=== PATIENT | female | born 1985 | race Caucasian/White ===

== ENCOUNTER 2018-12-01 10:58 | Outpatient (CLI) | payer BC, SELFPAY ==
[2018-12-01 12:02] LABS: TSH (W/Ref FT4) 0.68 uIU/mL (0.358-3.74)
== END 2018-12-01 11:18 ==
PROVIDERS: PCP Nurse Practitioner Family; Visit Provider Nurse Practitioner Women's Health
DX: N93.9 Abnormal uterine and vaginal bleeding, unspecified (principal)
CPT/HCPCS: 36415; 84443

== ENCOUNTER 2021-05-05 12:43 | Outpatient (REF) | payer OTHER, SELFPAY ==
--- NOTE | 2021-05-05 10:45 | PAPFT_PTH ---
PATIENT: rAuna Gray LOC: [facility] U#:[id number] AGE/SX: 35/F ROOM: RE05/05/[address]: STACIE Brito : 1985 BED: DIS: 05/05/2021 SPEC #: [id number] RECD: 05/05/21 12:54 STATUS: SONAL REQ #: [id number] JOHNNIE: 05/05/21 10:[address]: Deepika Santos DEPT: [facility] Cytology RECD BY: Anitha Valenzuela ENTERED: 05/05/21 12:55 SP TYPE: PAPFT OTHR DR: Mely Albarran Tissues: 1 - CX/ENDOCX FOR PAP SMEARS Procedures: PAP THIN PREP/UVM Screening HPV DNA PROBE Comments: [id number]
== END 2021-05-05 12:44 | disposition home or self-care (01) ==
LOC: LBN 12:43
PROVIDERS: PCP Nurse Practitioner Family; Referring Provider Nurse Practitioner Family; Visit Provider Nurse Practitioner Family
DX: Z12.4 Encounter for screening for malignant neoplasm of cervix (principal); Z11.51 Encounter for screening for human papillomavirus (HPV)
CPT/HCPCS: 88142; 87624

== ENCOUNTER 2021-05-14 00:36 | Outpatient (CLI) | payer OTHER, SELFPAY ==
--- NOTE | 2021-05-14 14:30 | DI.MAMMO_ITS ---
Exam(s) MAMMO SCREENING EXAM: MAMMO SCREENING CLINICAL HISTORY: screening. TECHNIQUE: Bilateral full field digital CC and MLO mammographic images were obtained with 3D tomosyn thesis and utilizing computer aided detection (CAD). COMPARISON: None. This is a baseline screening mammogram on this 35-year-old patient. Her mother w as diagnosed with breast cancer at age 50. FINDINGS: The fibroglandular tissue is very dense, this decreasing the sensitivity of the mammogram for finding hidden underlying lesions. There are multiple nodular densities evident bilaterally. No malignant-appearing microcalcification groups. There is no significant architectural distortion nor skin thickening-retraction. IMPRESSION: Very dense bilateral fibroglandular tissue. Suggestion of bilateral nodules. Bilateral complete breast ultrasound recommended. Significant family history BI-RADS Category 0 - Assessment Incomplete: Need additional imaging evaluation Breast Density - Category D - Extremely dense Breast density Category C or D implies that the patient has dense breast tissue. Dense breast tissue can make it harder to find cancer on a mammogram. Dense breast tissue is also associated with an incr eased risk of breast cancer. This information about the result of the mammogram report was provided to the patient to raise their awareness. Use this report when you speak with the patient about their risks for breast cancer, which includes their family history. At that time, you may recommend additional screening tests (Ultrasoun d or MRI) as these tests may add significant information. A negative radiographic report should not delay biopsy if a dominant or clinically suspicious mass is present. Up to ten percent of cancers are not identified on mammography. A negative report may reinforce clinical impression. Adenosis and dense breasts may obscure an underlying neoplasm. False positive reports average 6 to 10%. Patient will receive a letter notifying them of these results.
== END 2021-05-14 00:56 ==
PROVIDERS: PCP Nurse Practitioner Family; Visit Provider Nurse Practitioner Family
DX: Z12.31 Encounter for screening mammogram for malignant neoplasm of breast (principal); R92.8 Other abnormal and inconclusive findings on diagnostic imaging of breast; Z80.3 Family history of malignant neoplasm of breast
CPT/HCPCS: 77063; 77067

== ENCOUNTER 2021-12-03 14:06 | Outpatient (CLI) | payer OTHER, SELFPAY ==
--- NOTE | 2021-12-03 11:20 | DI.RAD_ITS ---
Exam(s) XR ABDOMEN FLAT PLATE EXAM: XR ABDOMEN FLAT PLATE CLINICAL HISTORY: FLANK PAIN, LEFT R10.9 TECHNIQUE: COMPARISON: No exams were available for comparison FINDINGS: Two views were obtained. Bowel gas pattern is within normal limits. There is calcification projecte d over the right mid abdomen which is nonspecific. Nephrolithiasis not excluded. There is a calcifi cation projected over the left mid abdomen which overlies left kidney as well, again nephrolithiasis not excluded. No gross organomegaly or free air. IMPRESSION: Possible bilateral nephrolithiasis, CT may be obtained for confirmation if clinically indicated. RADIATION DOSE DELIVERED: Total DLP
== END 2021-12-03 14:26 ==
PROVIDERS: PCP Nurse Practitioner Family; Visit Provider Nurse Practitioner Family
DX: R10.31 Right lower quadrant pain (principal)
CPT/HCPCS: 74018

== ENCOUNTER 2021-12-03 15:11 | Outpatient (REF) | payer OTHER, SELFPAY ==
[2021-12-03 18:48] LABS: HCT 42.8 % (36.0-46.0); HGB 13.7 g/dL (11.2-15.7); MCH 30.1 pg (27.0-33.0); MCV 94.1 fL (80-95); Platelet Count 251 10^3/uL (130-400); RBC 4.55 10^6/uL (3.93-5.22); RDW 11.8 % (11.7-14.6); WBC 4.95 10^3/uL (4.4-10.8)
[2021-12-03 18:55] LABS: ALT 24 U/L (14-59); AST 13 U/L (15-37); Albumin 4.6 g/dL (3.4-5.0); Alkaline Phosphatase 57 U/L (46-116); Amylase 86 U/L (25-115); Anion Gap 9.2 mmol/L (3-11); BUN 13 mg/dL (7-18); Bilirubin, Total 0.3 mg/dL (0.2-1.0); C-Reactive Protein 0.08 mg/dL (0.0-0.3); CO2 27.8 mmol/L (21.0-32.0); CREATININE 0.8 mg/dL (0.55-1.02); Chloride 103 mmol/L (98-107); Glucose 93 mg/dL (74-106); Lipase 169 U/L (73-393); Potassium 4.1 mmol/L (3.5-5.1); Sodium 140 mmol/L (136-145); TSH 0.88 uIU/mL (0.36-3.74); Total Protein 7.4 g/dL (6.4-8.2)
[2021-12-03 18:57] LABS: Bilirubin Negative (Negative); Blood Negative (Negative); Clarity Clear (Clear); Glucose Negative (Negative); Ketones Negative (Negative); Leukocyte Esterase Negative (Negative); Nitrite Negative (Negative); Urobilinogen 0.2 EU/dL (Up TO 0.2)
[2021-12-03 18:59] LABS: ESR < 1 mm/hr (0-20)
== END 2021-12-03 15:12 | disposition home or self-care (01) ==
LOC: NCHCN 15:11
PROVIDERS: PCP Nurse Practitioner Family; Visit Provider Nurse Practitioner Family
DX: R10.32 Left lower quadrant pain (principal); D89.89 Other specified disorders involving the immune mechanism, not elsewhere classified
CPT/HCPCS: 80053; 83690; 85027; 85652; 81003; 82150; 84443; 86140

== ENCOUNTER → 2022-03-05 00:36 | Outpatient (CLI) | payer OTHER, SELFPAY ==
--- OUTSIDE RECORDS SUMMARY | 2022-03-05 00:43 | XMS_ITS | Encounter Summary ---
:1985 Author Organization [facility] [place] [address] Care Team Providers Name Role Phone Levi Juarez Primary Care Provider Reason for Visit Reason Onset Date Comments Results 09/01/2015 Encounter Details Date Type Department Care Team Description 09/01/2015 Telephone Obstetrics and Gynec ology at [facility] [place] [address] Social History Tobacco Use Types Packs/Day Years Used Date Never Smoker Alcohol Use Standard Drinks/Week Comments Yes 0 (1 standard drink = 0.6 oz pure alcoho l) rare Alcohol Habits Answer Date Recorded How often do you have a drink containing alcohol? Not asked How many drinks containing alcohol do you have on a typical Not asked day when you are drinking? How often do you have six or more drinks on one occasion? No t asked Comment: rare 08/25/2015 Sex Assigned at Date Recorded Not on file documented as of this encounter Miscellaneous Notes Telephone Encounter - Kristan Irwin RN - 09/01/2015 1:20 PM EST Caller: patient Learning Needs Assessment Reviewed: Yes Subjective Patient presents with: Results Objective/Assessment Symptom onset: calling to get lab results Location: n/a Duration: n/a Characteristics: n/a Aggravating factors: n/a Relieving factors: n/a Timing: n/a Severity: n/a Pertinent Past Medical History: Plan Intervention/Plan/ Follow Up: patient calling to get results from blood work. This nurse spoke with Jamar Spann APRN, regarding results. Gave patient results and let her know that when she sees TIFFANY that they will go over what these mean at that time. Patient in agreement with plan. Will call clinic with further questions or results. Telephone Encounter - Kristan Irwin RN - 09/01/2015 1:20 PM EST ----- Message from Tiffany Linn sent at 09/01/2015 12:03 PM EST ----- Contact: Roberto Patient Patient is calling wanting to get her lab results. She can be reached at [phone]. Thank you, Tiffany documented in this encounter Plan of Treatment Not on filedocumented as of this encounter Visit Diagnoses Not on filedocumented in this encounter Care Teams Fine Hairer Relationship Specialty Start Date End Date Levi Juarez DO PCP - General Family Medicine 08/25/[address] [place] [phone] documented as of this encounter
--- OUTSIDE RECORDS SUMMARY | 2022-03-05 00:43 | XMS_ITS | Clinical Summary ---
:1985 Author Organization [facility] [place] [address] Care Team Providers Name Role Phone Ann Levi Graf Primary Care Provider Allergies Active Allergy Reactions Severity Noted Date Comments Sulfa (Sulfonamide Antibiotics) Nausea And Vomiting Medium Medications Medication Sig Dispensed Refills Start Date End Date Status folic acid (FOLVITE) 1 Take 1 mg by 0 Active mg Tablet mouth daily. EVENING PRIMROSE OIL Take by mouth. 0 Active (EVENING PRIMROSE ORAL) Active Problems No known active problems Social History Tobacco Use Types Packs/Day Years Used Date Never Smoker Smokeless Tobacco: Never Used Alcohol Use Standard Drinks/Week Comments Yes 0 [...] Assigned at Date Recorded Not on file Last Filed Vital Signs Vital Sign Reading Time Taken Comments Blood Pressure 122/80 09/09/2015 2:11 PM EST Pulse 84 09/09/2015 2:11 PM EST Temperature - - Respiratory Rate 14 09/09/2015 2:11 PM EST Oxygen Saturation - - Inhaled Oxygen Concentration - - Weight 48.8 kg (107 lb 9.6 oz) 09/09/2015 2:11 PM EST Height 163.8 cm (5' 4.5) 09/09/2015 2:11 PM EST Body Mass Index 18.18 09/09/2015 2:11 PM EST Plan of Treatment Health Maintenance Due Date Last Done Comments Covid-19 Vaccine (#1) 1989 Tdap adult 11/06/2003 Tetanus vaccine 11/06/2003 HPV test 2014 PAP Smear 2014 Influenza (Flu) vaccine ( of - Influenza standard 04/22/2022 series) HIV screen Completed 09/09/2015 Hepatitis C Screening Completed 09/09/2015 Insurance Payer Benefit Plan / Subscriber ID Effective Dates Phone Addre ss Type Group CIGNA CIGNA OPEN 2014-Present [phone] [address] [id number] ACC[employer]ES [phone] (Home) [place] [address] Care Teams Linotyper Relationship Specialty Start Date End Date Levi Juarez DO PCP - General Family Medicine 08/25/15 [address] [place] [address]
--- OUTSIDE RECORDS SUMMARY | 2022-03-05 00:43 | XMS_ITS | Encounter Summary ---
:1985 Author Organization [facility] [place] [address] Care Team Providers Name Role Phone JuarezLevi Primary Care Provider Encounter Details Date Type Department Care Team Description 09/09/2015 Office Visit Obstetrics and ZanaSalome Procrea tive investigation and testing; Gynecology at [facility] POST EXCHANGE MANAGER Infertility counseling [facility] [address] [place] VASCULAR SURGERY [phone] [place] [address] [phone] (Wo rk) Social History Tobacco Use Types Packs/Day Years [...] on file documented as of this encounter Last Filed Vital Signs Vital Sign Reading [...] Mass Index 18.18 09/09/2015 2:11 PM EST documented in this encounter Progress Notes Salome Spann, POST EXCHANGE MANAGER - 09/09/2015 3:58 PM EST NEW INFERTILITY CONSULTATION [facility] INFERT[facility] [place], [place] Neha Keen MD IVF/ART Waste Reduction Coordinator Elliot Rodriguez, MD Salome Blake ARNP Donna Bedard, Program Bertrand CHIEF COMPLAINT: Infertility. Subjective: The patient is a 29 y.o. old G 0 and her partner is a ye35 ar old male. The couple present in consultation from Roberto for a discussion with regards to primary infertility. [id number] with 28 30 day cycles. She reports 5days of flow with mild to moderate cramping. She doesnot experience moliminal symptoms with breast tenderness. She has had 0 prior pregnancies. She denies a hx of IUD use, STD's, or exposure to ANJU exposure. Her last pap was normal, 2012, no hx abnormal paps. Past Infertility Test: They have done one cycle Clomid 50mg PO with her CERTIFIED INDUSTRIAL HYGIENIST provider in [place], [place], no conception AMH 1.08 She has used OPKs and noted + surge She has been off OCPs x 2 years but they have been actively trying for < 1 year. They have intercourse 2-3 x around surge No erectile or ejaculatory concerns Past Medical History Diagnosis Date ??? Scoliosis no surgery ??? Behcet's disease ??? GERD (gastroesophageal reflux disease) Past Surgical History Procedure Laterality Date ??? Mouth surgery ??? Tonsillectomy ??? 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 Sulfa (Sulfonamide Antibiotics) Nausea And Vomiting Ms. Gray does not currently have medications on file. Male History: He has Not fathered any children or pregnancies. He is otherwise healthy and has not yet had an S/A. Social History: The couple have been trying to conceive for ~ 2 years but actively trying < than one year. She works as a RN , he works as a RN .The patient is a non-smoker, and uses minimal alcohol. They deny a history of recreational drug use. Review of Systems - negative GENETICS SCREENING: The genetic history is negative for the patient and her through first cousins for mental retardation, Down syndrome, neural tube defects, defects, inherited disorders such as cystic fibrosis, hemophilia, muscular dystrophy, polycystic kidney disease, thrombophelia, inherited skin, bone, or other neurologic disease or two or more spontaneous abortions. The additional genetic history was not positive The patient has not been screened for cystic fibrosis. Objective: Review of the patient in take history. BP 122/80 mmHg Pulse 84 Resp 14 Ht 163.8 cm (5' 4.5) Wt 48.807 kg (107 lb 9.6 oz) BMI 18.19 kg/m2 LMP 09/09/2015 Assessment: 1. Primary infertility. I had a 50 minute visit with this patient, with 50 minutes spent in face to face counseling this couple with regards to the standard infertility work up, and possible causes of infertility. We discussed the possibility that we may not be able to identify a cause. I discussed the infertility evaluation, including the usual tests such as documentation of ovulation, semen analysis, hysterosalpingogram, and laboratory hormonal assessment. I discussed her current BMI of 18.19 and recommended trying to increase BMI to closer to 20. I explained the rationale for unexplained infertility treatment such as clomiphene and intrauterine insemination, historically moving on to gonadotropin and intrauterine insemination and then in vitro fertilization. I explained the success rates, multiple rates, and rationale for these treatments for women under 40 years of age. She was counseled of the of the option for genetic screening for cystic fibrosis carrier status and will consider She was asked to continue on a multivitamin containing folic acid. At end of discussion they would like to have SA and blood work and continue to try to conceive on own for 3-4 months and if no conception complete Hycosy and discuss ovulation induction with IUI. Reviewed ovulation prediction and timing of intercourse to optimize chances for . Recommendations: 1. profile,varicella 2. CF screening offered 3. Ultrasound guided tubal patency study 4. SA 5. Follow Up talk following completion of tests BJORN SULLIVAN DO documented in this encounter Plan of Treatment Not on filedocumented as of this encounter Procedures Procedure Name Priority Date/Time Associated Diagnosis Comme nts HEMOGRAM Routine 09/09/2015 3:40 PM Procreative Results f or this EST investigation and procedure are in testing the results section. SCREEN Routine 09/09/2015 3:40 PM Procreative ([facility]) EST investigation and testing DIFFERENTIAL, Routine 09/09/2015 3:40 PM Procreative Results for this AUTOMATED EST investigation and procedure are in testing the results section. HEPATITIS C Routine 09/09/2015 3:40 PM Procreative Results f or this ANTIBODY EST investigation and procedure are in testing the results section. SYPHILIS ANTIBODY Routine 09/09/2015 3:40 PM Procreative Resu lts for this SCREEN WITH REFLEX EST investigation and proc edure are in testing the results section. ABO/RH TYPING Routine 09/09/2015 3:40 PM Procreative Results for this EST investigation and procedure are in testing the results section. RUBELLA ANTIBODY, Routine 09/09/2015 3:40 PM Procreative Resu lts for this IGG EST investigation and procedure are in testing the results section. HIV SCREEN, 4TH Routine 09/09/2015 3:40 PM Procreative Result s for this GENERATION EST investigation and procedure are in ([facility]/APD/[facility]) testing the resul ts section. HEPATITIS B SURFACE Routine 09/09/2015 3:40 PM Procreative Re sults for this ANTIGEN EST investigation and procedure are in testing the results section. ANTIBODY SCREEN Routine 09/09/2015 3:40 PM Procreative Result s for this EST investigation and procedure are in testing the results section. VARICELLA ZOSTER Routine 09/09/2015 3:40 PM Procreative Resul ts for this ANTIBODY, IGG EST investigation and procedure are in testing the results section. documented in this encounter Results Differential, Automated (09/09/2015 3:40 PM EST) P athologist Signature Neutrophils % 59.7 % CERNER MILLENNIUM Neutr Abs (ANC) 3.47 1.50 - CERNER 6.30 MILLENNIUM x10(3)/mcL Lymphocytes % 29.6 % CERNER MILLENNIUM Lymphocytes Abs 1.7 1.0 - 3.6 CERNER x10(3)/mcL MILLENNIUM Monocytes % 8.4 % CERNER MILLENNIUM Monocyte Abs 0.5 0.2 - 1.0 CERNER x10(3)/mcL MILLENNIUM Eosinophils % 1.4 % CERNER MILLENNIUM Eosinophils Abs 0.1 0.0 - 0.5 CERNER x10(3)/mcL MILLENNIUM Basophils % 0.7 % CERNER MILLENNIUM Basophils Abs 0.0 0.0 - 0.2 CERNER x10(3)/mcL MILLENNIUM Immature Gran % 0.20 % CERNER MILLENNIUM Comment: Immature granulocytes(IG's)percentage an d absolute count will include metamyelocytes, myelocytes, and promyelo cytes. Blood smears from CBCs yielding IG's will be scanned manually for concor dance. If this scan disagrees with the automated IG or if promyelocytes are not ed, a manual differential will be performed. Jadyn Gran Abs 0.01 0.00 - 0.05 x10(3)/mcL CER NER MILLENNIUM Specimen Anatomical Collection Method Collection Time Receive d Time (Source) Location / / Volume Laterality Blood specimen 09/09/2015 3:40 PM 016 3:56 (specimen) EST PM EST Resulting Agency Comment Spec In Lab Sintia Kaufman MD HEMATOLOGY ORDERABLES Performing Organization Address City/State/ZIP Code Phon e Number [place] [id number] CERNER MILLENNIUM Hemogram (09/09/2015 3:40 PM EST) P athologist Signature WBC 5.8 4.0 - 10.0 CERNER x10(3)/mcL MILLENNIUM RBC 4.54 3.93 - 5.22 CERNER x10(6)/mcL MILLENNIUM Hemoglobin 13.8 11.2 - 15.7 CERNER gm/dL MILLENNIUM Hematocrit 40.8 34.0 - 45.0 CERNER % MILLENNIUM MCV 89.9 79.0 - 94.0 CERNER fL MILLENNIUM MCH 30.4 26.6 - 32.2 CERNER pg MILLENNIUM MCHC 33.8 32.0 - 36.5 CERNER gm/dL MILLENNIUM Platelets 186 145 - 370 CERNER x10(3)/mcL MILLENNIUM RDWSD 39.7 35.0 - 46.0 CERNER fL MILLENNIUM RDWCV 12.1 10.9 - 14.4 CERNER % MILLENNIUM MPV 10.4 9.0 - 12.0 CERNER fL MILLENNIUM Specimen Anatomical Collection Method Collection Time Receive d Time (Source) Location / / Volume Laterality Blood specimen 09/09/2015 3:40 PM 016 3:56 (specimen) EST PM EST Resulting Agency Comment Spec In Lab Sintia Kaufman MD HEMATOLOGY ORDERABLES Performing Organization Address City/[facility]/ZIP Code Phon e Number [address] [facility] ZACHARYENNIUM Rubella Antibody, IgG (09/09/2015 3:40 PM EST) P athologist Signature Rubella IgG Positive Positive [facility] Comment: Please note: ??A positive result for thi s assay indicates that antibody levels are >or= 10.0 IU/mL and is considered to be an indicator of positive immune status. Specimen Anatomical Collection Method Collection Time Receive d Time (Source) Location / / Volume Laterality Blood specimen 09/09/2015 3:40 PM 016 3:56 (specimen) EST PM EST Resulting Agency Comment Spec In Lab Sintia Kaufman MD IMMUNOLOGY ORDERABLES Performing Organization Address City/[facility]/ZIP Code Phon e Number [address] [facility]WE[facility] Hepatitis B Surface Antigen (09/09/2015 3:40 PM EST) Analysis Performed At Patho logist Time Signature HepB Surface Negative Negative [facility] Ag ZACHARYENNIUM Specimen Anatomical Collection Method Collection Time Receive d Time (Source) Location / / Volume Laterality Blood specimen 09/09/2015 3:40 PM 016 3:56 (specimen) EST PM EST Resulting Agency Comment Spec In Lab Sintia Kaufman MD CHEMISTRY ORDERABLES Performing Organization Address City/[facility]/ZIP Code Phon e Number [address] [facility] Syphilis Antibody, IgG (09/09/2015 3:40 PM EST) P athologist Signature Syphilis IgG Neg Neg [facility] Specimen Anatomical Collection Method Collection Time Receive d Time (Source) Location / / Volume Laterality Blood specimen 09/09/2015 3:40 PM 016 6:57 (specimen) EST AM EST Resulting Agency Comment Spec In Lab Sintia Kaufman MD IMMUNOLOGY ORDERABLES Performing Organization Address City/[facility]/[place] [address] CERNER MILLENNIUM Antibody screen (09/09/2015 3:40 PM EST) Patholo gist Method Time Signature Ab Screen Negative [facility] Interp MILLENNIUM Expires at 09/12/2015 [facility] [id number] on: MILLENNIUM Specimen Anatomical Collection Method Collection Time Receive d Time (Source) Location / / Volume Laterality Blood specimen 09/09/2015 3:40 PM 016 3:46 (specimen) EST PM EST Resulting Agency Comment Spec In Lab Sintia Kaufman MD BLOOD BANK ORDERABLES Performing Organization Address City/[facility]/[place] [address] [facility] MILLENNIUM ABO/Rh Typing (09/09/2015 3:40 PM EST) P athologist Signature ABORh Type A Pos [facility] Specimen Anatomical Collection Method Collection Time Receive d Time (Source) Location / / Volume Laterality Blood specimen 09/09/2015 3:40 PM 016 3:46 (specimen) EST PM EST Resulting Agency Comment Spec In Lab Sintia Kaufman MD BLOOD BANK ORDERABLES Performing Organization Address City/[facility]/[place]IP [place] [address] CERNER MILLENNIUM Hepatitis C Antibody (09/09/2015 3:40 PM EST) Analysis Performed At Patho logist Time Signature Hepatitis C Ab Negative Negative [facility] MILLWESTERN [facility]UM Specimen Anatomical Collection Method Collection Time Receive d Time (Source) Location / / Volume Laterality Blood specimen 09/09/2015 3:40 PM 016 3:56 (specimen) EST PM EST Resulting Agency Comment Spec In Lab Sintia Kaufman MD IMMUNOLOGY ORDERABLES Performing Organization Address City/[facility]/ZIP Code [place] [address] CERNER MILLENNIUM Varicella zoster Antibody, IgG (09/09/2015 3:40 PM EST) P athologist Signature Varicella IgG Pos CERNER MILLENNIUM Specimen Anatomical Collection Method Collection Time Receive d Time (Source) Location / / Volume Laterality Blood specimen 09/09/2015 3:40 PM 016 6:57 (specimen) EST AM EST Resulting Agency Comment Spec In Lab Sintia Kaufman MD IMMUNOLOGY ORDERABLES Performing Organization Address City/[facility]/[place] [address] CERNER ZACHARYENNIUM HIV Screen, 4th Generation (09/09/2015 3:40 PM EST) Analysis Performed At Patho logist Time Signature HIV-1/2 Ab and Negative Negative CERNER Ag MILLENNIUM Comment: This 4th Generation HIV test screens for the presence of the HIV-1 p24 antigen as well as antibodies reactive against H IV-1 and HIV-2. A negative screen does not rule out an acute HIV infection. If acute HIV infection is suspected, testing should be repeated in 2 - 3 week s or HIV nucleic acid testing performed. Specimen Anatomical Collection Method Collection Time Receive d Time (Source) Location / / Volume Laterality Blood specimen 09/09/2015 3:40 PM 016 3:56 (specimen) EST PM EST Resulting Agency Comment Spec In Lab Sintia Kaufman MD IMMUNOLOGY ORDERABLES Performing Organization Address City/[facility]/ZIP Code Phon e Number [address] CERNER ZACHARYENNIUM documented in this encounter Visit Diagnoses Diagnosis Procreative investigation and testing Other investigation and testing for proc reative management Infertility counseling documented in this encounter Care Teams Furniture Detailer Relationship Specialty Start Date End Date Levi Juarez DO PCP - General Family Medicine 08/25/15 [address] [place] [address] documented as of this encounter
--- OUTSIDE RECORDS SUMMARY | 2022-03-05 00:43 | XMS_ITS | Encounter Summary ---
:1985 Author Organization [facility] [place] [address] Care Team Providers Name Role Phone Levi Juarez DO Primary Care Provider Encounter Details Date Type Department Care Team Description 09/15/2015 External Results Obstetrics and Gynecology [facility] [phone] Social History Tobacco Use Types Packs/Day [...] on file documented as of this encounter Plan of Treatment Not on filedocumented as of this encounter Procedures Procedure Name Priority Date/Time Associated Diagnosis Comme nts LAB SCAN Routine 09/12/2015 documented in this encounter Results Scan Doc: Lab (09/12/2015) Narrative This result has an attachment that is no t available. Scanning Provider MEDIA MGR SCAN EXT ORDR/RSLT documented in this encounter Visit Diagnoses Not on filedocumented in this encounter Care Teams General Farm Hand Relationship Specialty Start Date End Date Levi Juarez DO PCP - General Family Medicine 08/25/15 [address] [place] [phone] documented as of this encounter
--- OUTSIDE RECORDS SUMMARY | 2022-03-05 00:43 | XMS_ITS | Encounter Summary ---
:1985 Author Organization [facility] [place] [address] Care Team Providers Name Role Phone Levi Juarez Primary Care Provider Reason for Visit Reason Comments Establish Care Encounter Details Date Type Department Care Team Description 08/25/2015 Office Visit Obstetrics and MejiaMartita MD Procreative management (Primary Dx); Gynecology at [facility] Irregular menstrual bleeding [facility] DR Garcia OBSTETRICS & [place], [place] GYNECOLOGY DEPT [id number] [place] [address] [phone] (Wo rk) Social History Tobacco Use Types [...] Sign Reading Time Taken Comments Blood Pressure 120/80 08/25/2015 3:25 PM EST Pulse - - Temperature - - Respiratory Rate - - Oxygen Saturation - - Inhaled Oxygen Concentration - - Weight 48.5 kg (107 lb) 08/25/2015 3:25 PM EST Height 162.6 cm (5' 4) 08/25/2015 3:25 PM EST Body Mass Index 18.37 08/25/2015 3:25 PM EST documented in this encounter Progress Notes Nisha Eugene MD - 08/29/2015 4:05 PM EST I was the attending physician supervising the resident in the above care. We discussed her assessment and plan at the time of her visit and I agree with Dr. Mejia's documentation. Martita Vasquez MD - 08/25/2015 3:30 PM EST Gynecology Clinic visit. Aruna Gray [id number] 08/25/2015 HPI: Aruna is a 29 yo G0 woman who presents for a second opinion regarding irregular menstrual bleeding and infertility. She has been using control pills from age [age] and over the past 2 years she and her have been having unprotected intercourse and they have not conceived. She was previously seen by Caryn Cheek CNM in [place] and had some lab work done (see below). She was then prescribed Clomid for ovulation induction. She took it days 5-9 of her last cycle with the last dose on08/18/2015. 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 In the past she has had such severe labial ulcers that she had a portion of her labia removed. Every few months she has prodromal flare ups ~ 3 per year and uses topical steroid ointment (betamethasone) or oral steroid tapers ~1-2 per year with good control. Her last true outbreak was 2-3 years ago. She also has a history of cystic acne especially around her mouth which seems renay worsening. Recent labs: 07/31/2015 TSH 1.41 Progesterone 0.6ng/mL Beta hcg: negative. Prolactin 18.4ng/mL Regarding her Behcet's disease starting in 2005 she began to have severe genital and mouth ulcers adozen at a time. She was initially reated for herpes. HSV titers negative She was tested for HIV and lupus which were all negative. Her ulcers worsened and she was admitted to the hospital for severaldays and treated with steroids, IV antivirals and IV antibiotics with some resolution although she continued to have flares of genital and oral ulcers. She was seen by a specialist at [facility], Dr.Margaret Dean who now works at [employer]. She has been able to manage her symptoms well and does not have any ulcers at this time. Tax Revenue Officer Hx: Menarche: 14 yo Had a h/o ovarian cyst rupture. Hospitalized for one night as a teenager. No surgery. Cycles: were q 28 days. Was on OCPs from age [age]. Periods were 4-5 days. 3 days of moderate then tapered. Every other period cramping and low back pain. A brief period of intermenstrual spotting. Pelvic ultrasound normal 2010. Since going off the pill her menses have been q 28 days, lasting 4-5 days. She had one mid cycle bleed this Fall: Her cycles were as follows: May 03- in May 31, June 14-June 25. July 09-. August 11. Patient's last menstrual period was 08/11/2015. Pregnancies: none. Contraception: OCPs as above. Condoms in the past. No h/o STIs. Pap: No h/o abnormal paps. 2013 WNL. Past medical, surgical history reviewed and updated. Prior to Admission medications Medication Sig Start Date End Date Taking? Authorizing Provider folic acid (FOLVITE) 1 mg Tablet Take 1 mg by mouth daily. Yes PROVIDER, HISTORICAL Allergies Allergen Reactions ??? Sulfa (Sulfonamide Antibiotics) Nausea And Vomiting Objective: Blood pressure 120/80, height 162.6 cm (5' 4), weight 48.535 kg (107 lb), last menstrual period 08/11/2015. Body mass index is 18.36 kg/(m^2). Gen: pleasant, NAD CV: RRR, no murmurs Pulm: CTAb, no wheezes. Abdomen: thin, soft, non-tender to palpation. Pelvic exam: External genitalia normal. Right inferior labia with 1cm round scar in area of prior ulcer. No active ulcerative lesions. Normal urethra, [place]'s and bartholin's glands. Speculum exam: vagina pink, rugated. Cervix normal appearing, no lesions. Bimanual small, mobile anteverted uterus. Neuro: normal gait. Psych: normal affect. 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 Ordered semen analysis. Referralto [facility] department for remainder of work up/ treatment as indicated. 2.) Irregular bleeding- per history she had one mid-cycle bleed, otherwise has normal monthly cycles. She will likely undergo an imaging study with [facility] which will evaluate for a structural cause of irregular bleeding. TSH and prolactin normal. 3.) Behcet's disease - currently well managed with no active outbreaks. Offered referral to vulvar specialist Dr. Keli Marquis. Gave her card to have as a reference PRN. Pt discussed with Dr. Eugene, Attending. MARTITA MEJIA MD PGY4 08/25/2015 documented in this encounter Plan of Treatment Not on filedocumented as of this encounter Procedures Procedure Name Priority Date/Time Associated Diagnosis Comme nts ANTI-MULLERIAN Routine 08/25/2015 5:23 PM Procreative Results for this HORMONE EST management procedure are i n the results section. documented in this encounter Results Anti-Mullerian Hormone (08/25/2015 5:23 PM EST) athologist Signature AMH-Eso 1.08 1.03 - CERNER 11.10 ng/mL [facility] Comment: Please see scanned report in Chart Revie w under the Non-DH Laboratory Heading. Circulating AMH levels change during pub ertal development: male levels decrease, female levels increase with se xual development. An AMH concentration of >=1.06 ng/mL is correlated with a better response to ovarian stimulation and produces more re trievable oocytes and higher odds of a live according to Fracisco et al. The current AMH test method correlates with the study method with a slope of 0. 94. (Fertil Steril. 2010:94:4363-3750). Females at risk of ovarian hyperstimulat ion syndrome or polycystic ovarian syndrome (PCOS) may exhibit elevated ser um AMH concentrations. AMH levels from PCOS patients may be 2-to 5-fold higher than age-appropriate reference interval values. Granulosa cell tumors of the ovary may s ecrete AMH along with other tumor markers. Elevated AMH is not specific fo r malignancy, and the assay should not be used exclusively to diagnose or exclu de an AMH-secreting ovarian tumor. Test performed by [facility] [address] [place] [address] Specimen Anatomical Collection Method Collection Time Receive d Time (Source) Location / / Volume Laterality Blood specimen 08/25/2015 5:23 PM 016 (specimen) EST 10:37 AM EST Narrative This result has an attachment that is no t available. Resulting Agency Comment Spec In Lab Nisha Eugene MD CHEMISTRY ORDERABLES Performing Organization Address City/State/ZIP Code Phon e Number [address] [facility] documented in this encounter Visit Diagnoses Diagnosis Procreative management - Primary Unspecified procreative management Irregular menstrual bleeding Irregular menstrual cycle documented in this encounter Care Teams Optical Dispenser Relationship Specialty Start Date End Date Levi Juarez DO PCP - General Family Medicine 08/25/[address] [place] [phone] documented as of this encounter
--- OUTSIDE RECORDS SUMMARY | 2022-03-05 00:44 | XMS_ITS | Encounter Summary ---
:1985 Author Organization [facility] Address [address] [place] [address] Care Team Providers Name Role Phone Unknown, Provider Primary Care Provider Encounter Details Date Type Department Care Team Description 04/10/2021 Lab Requisition [facility] Outr Resulting Lab, Pathology & Laboratory Provider [facility] [address] [place], [place] [address] Social History Tobacco Use Types Packs/Day Years Used Date Never Assessed Sex Assigned at Date Recorded Not on file documented as of this encounter Plan of Treatment Not on filedocumented as of this encounter Procedures Procedure Name Priority Date/Time Associated Diagnosis Comme nts COVID-19 TEST [facility] Today 04/10/2021 10:39 LAB PCR EDT COVID-19 TESTING Routine 04/10/2021 10:39 Results for this EDT procedure are i n the results section. documented in this encounter Results COVID-19 TEST [facility] LAB PCR (04/10/2021 10:39 EDT) Specimen Swab - Entire nasopharynx (body structur e) Performing Organization Address City/State/ZIP Code Phon e Number [facility] [address] [place] [address] SERVICES COVID-19 TESTING (04/10/2021 10:39 EDT) COVID-19 rt-PCR Negative Negative [facility] Result Comment: [facility]ENTER [facility]ORY This test has not been FDA c leared or approved. This test has been authorized by FDA under an EUA for use by authorized laboratories. This test has been authorized only for detection of nucleic acid fro SERVICES m 2018-nCo, not for any oth er viruses or pathogens. This test is only authorized for the duration of the declaration that circumstances exist justifying the authorization of emergency use of in vitro d iagnostic tests for detectio n and/or diagnosis of 2019-nCoV under section 564(b)(1) of Act, 21 U.S.C ?? 360bbb-3(b) (1), unless the authorization is terminated or revoked sooner. Negative results do not prec lude 2019-nCoV infection and should not be used as the sole basis for treatment or other patient management decisions. Negative results must be combined with clinical observa tions, patient history, and epidemiological informatio n. Performed on the [employer] Fusion instrument Performing Lab [place] [facility] Lab [facility] SERVICES Specimen Swab Performing Organization Address City/State/ZIP Code Phon e Number [facility] [address] [place] [address] SERVICES documented in this encounter Visit Diagnoses Not on filedocumented in this encounter Care Teams Duplicating Machine Mechanic Relationship Specialty Start Date End Date Unknown, Provider, PCP - General 01/26/17 documented as of this encounter
--- OUTSIDE RECORDS SUMMARY | 2022-03-05 00:44 | XMS_ITS | Encounter Summary ---
:[address] [facility] Address [address] [place] [address] Care Team Providers Name Role Phone Unknown, Provider Primary Care Provider Encounter Details Date Type Department Care Team Description 12/09/2020 Lab Requisition [facility] Outr Resulting Lab, Pathology & Laboratory Provider [facility] [address] [place], [place] [address] Social History Tobacco Use Types Packs/Day Years Used Date Never Assessed Sex Assigned at Date Recorded Not on file documented as of this encounter Plan of Treatment Not on filedocumented as of this encounter Procedures Procedure Name Priority Date/Time Associated Diagnosis Comme nts [facility] Today 12/09/2020 8:26 EDT LAB PCR COVID-19 TESTING Routine 12/09/2020 8:26 EDT Resu lts for this procedure are i n the results section. documented in this encounter Results COVID-19 TEST [facility] LAB PCR (12/09/2020 8:26 EDT) Specimen Swab - Entire nasopharynx (body structur e) Performing Organization Address City/State/ZIP Code Phon e Number [facility] [address] [place] [address] SERVICES COVID-19 TESTING (12/09/2020 8:26 EDT) COVID-19 rt-PCR Negative Negative [facility] Result Comment: [facility]ENTER [facility]ORY This test has not been FDA c leared or approved. This test has been authorized by FDA under an EUA for use by authorized laboratories. This test has been authorized only for detection of nucleic acid fro SERVICES m 2019-nCoV, not for any oth er viruses or [...] and epidemiological informatio n. Performed on the [employer] Fusion instrument Performing Lab [place] [facility] Lab [facility] SERVICES Specimen Swab Performing Organization Address City/State/ZIP Code Phon e Number [facility] [address] [place] [address] SERVICES documented in this encounter Visit Diagnoses Not on filedocumented in this encounter Care Teams Galvanizing Pot Runner Relationship Specialty Start Date End Date Unknown, Provider, PCP - General 01/26/17 documented as of this encounter
--- OUTSIDE RECORDS SUMMARY | 2022-03-05 00:44 | XMS_ITS | Encounter Summary ---
:1985 Author Organization [facility] Address [address] [place] [address] Care Team Providers Name Role Phone Unknown, Provider Primary Care Provider Encounter Details Date Type Department Care Team Description 07/27/2019 Lab Requisition [facility] Unknown, Provider, Pathology & Laboratory [facility] [address] [facility] [place], [place] [id number] [phone] Social History Tobacco Use Types Packs/Day Years Used Date Never Assessed Sex Assigned at Date Recorded Not on file documented as of this encounter Plan of Treatment Not on filedocumented as of this encounter Procedures Procedure Name Priority Date/Time Associated Comments Diagnosis QUANTIFERON TB GOLD Routine 07/26/2019 10:56 Resu lts for this PLUS EST procedure are i n the results section. documented in this encounter Results QUANTIFERON TB GOLD PLUS (07/26/2019 10:56 EST) Quantiferon Negative Negative [facility] Interpretation Comment: [facility]ENTER [facility] No interferon-gamma response to M. tuberculosis antigens was detected. ??Infection with M. tuberculosis is unlikely. A single negative result does not exclude infection with M. tuberculosis. ??In patien SERVICES ts at high risk for M. tuber culosis infection, a second test should be considered in accordance with the 2017 ATS/IDSA/CDC Clinical Practice Guidelines for Diagnosis of Tuberculosis in Adults and Childr en. [Giulia KENNY et. al. Clin. Infect. Dis. 2017:64 ( 2) ??: 111-115]. Results were obtained with the [employer]agen QuantiFERON TB G old Plus MARTIN. TB1 Ag minus Nil 0.00 IU/ml [facility] SERVICES TB2 Ag minus Nil 0.01 IU/mL [facility] SERVICES Specimen Blood - Venous blood (substance) Narrative [facility] SERVICES - 07/30/2019 14:40 EST Results were obtained with the [employer]agen Tricida antiFERON-TB Gold Plus MARTIN. Performing Organization Address City/State/ZIP Code Phon e Number [facility] [address] [place] [address] SERVICES documented in this encounter Visit Diagnoses Not on filedocumented in this encounter Care Teams Repair Department Supervisor Relationship Specialty Start Date End Date Unknown, Provider, PCP - General 01/26/17 documented as of this encounter
--- OUTSIDE RECORDS SUMMARY | 2022-03-05 00:44 | XMS_ITS | Encounter Summary ---
:1985 Author Organization [facility] Address [address] [place] [address] Care Team Providers Name Role Phone Unknown, Provider Primary Care Provider Encounter Details Date Type Department Care Team Description 05/20/2021 Lab Requisition [facility] Outr Resulting Lab, Pathology & Laboratory Provider [facility] [address] [place], [place] [address] Social History Tobacco Use Types Packs/Day Years Used Date Never Assessed Sex Assigned at Date Recorded Not on file documented as of this encounter Plan of Treatment Not on filedocumented as of this encounter Procedures Procedure Name Priority Date/Time Associated Diagnosis Comme nts COVID-19 TEST [facility] Today 05/20/2021 10:44 LAB PCR EDT COVID-19 TESTING Routine 05/20/2021 10:44 Results for this EDT procedure are i n the results section. documented in this encounter Results COVID-19 TEST [facility] LAB PCR (05/20/2021 10:44 EDT) Specimen Swab - Entire nasopharynx (body structur e) Performing Organization Address City/State/ZIP Code Phon e Number [facility] [address] [place] [address] SERVICES COVID-19 TESTING (05/20/2021 10:44 EDT) COVID-19 rt-PCR Negative Negative [facility] Result Comment: [facility]ENTER [facility] [...] and epidemiological informatio n. Performed on the [employer] Fusion instrument Performing Lab [place] [facility] Lab [facility] LAB[facility] SERVICES Specimen Swab Performing Organization Address City/State/ZIP Code Phon e Number [facility] [address] [place] [address] SERVICES documented in this encounter Visit Diagnoses Not on filedocumented in this encounter Care Teams Turbine Mechanic Relationship Specialty Start Date End Date Unknown, Provider, PCP - General 01/26/17 documented as of this encounter
--- OUTSIDE RECORDS SUMMARY | 2022-03-05 00:44 | XMS_ITS | Encounter Summary ---
:1985 Author Organization [facility] Address [address] [place] [address] Care Team Providers Name Role Phone Unknown, Provider Primary Care Provider Encounter Details Date Type Department Care Team Description 05/07/2021 Lab Requisition [facility] Deepika Santos E ncounter for other Pathology & SR. MANAGER general examination Laboratory Medicine [address] [place], [place] [address] [id number] [place], [place] [id number] Social History Tobacco Use Types Packs/Day Years Used Date Never Assessed Sex Assigned at Date Recorded Not on file documented as of this encounter Plan of Treatment Not on filedocumented as of this encounter Procedures Procedure Name Priority Date/Time Associated Comments Diagnosis PAP TEST Today 05/05/2021 10:45 Encounter for other Resu lts for this EDT general examination procedur e are in the results section. HUMAN PAPILLOMAVIRUS Today 05/05/2021 10:45 Encounter for ot her Results for this (HPV) DETECTION-HIGH EDT general examination procedure are in RISK TYPES the results section. documented in this encounter Results HUMAN PAPILLOMAVIRUS (HPV) DETECTION-HIGH RISK TYPES (05/05/2021 10:45 EDT) Pathologist Sig nature Human Papillomavirus Negative Negative [facility] (HPV) Detection-High LABORATORY SERVICES Types Specimen Pap Test - Cervix and/or Endocervix Performing Organization Address City/State/ZIP Code Phon e Number [facility] [address] [place] [address] SERVICES PAP TEST (05/05/2021 10:45 EDT) Specimens A. Cervix and/or [facility]ICAL Endocervix , ThinPrep CENTER Imaging System with LABORATORY Manual Evaluation SERVICES Specimen Adequacy Satisfactory for Evaluation - transformation zone component present [facility] Scant squamous epithelial component, con tamination present, possibly lubricant [facility] LAB[facility]ATORY SERVICES General Negative for [facility] Categorization intraepithelial CENTER lesion or malignancy LABORATORY SERVICES Attestation . [facility] signed by Celestino agustin LABORATORY SHEFALI Haynes(A SCP) SERVICES on 05/18/2021 at 1646 Clinical History See below [facility] LABORATORY SERVICES HPV The result for the Human Pap illomavirus (HPV) Detection-High Risk Types is Negative. No E6 or E7 mRNA is detected from HPV types 16,18,31,33,35,39,45,51,52,56,58,59,66, and 68 by success coach mediated [facility] amplification.Testing was pe rformed on specimen [id number] and was resulted on 05/18/2021 1643 EDT by JHONATHAN, LAB INSTRUMENT RESULTS IN [facility] LABORATORY SERVICES Performing Lab [facility] LAB [facility] LABORATORY SERVICES Scanned Images [facility] LABORATORY SERVICES Specimen Pap Test - Cervix and/or Endocervix Performing Organization Address City/State/ZIP Code Phon e Number [facility] [address] [place] [address] SERVICES documented in this encounter Visit Diagnoses Diagnosis Encounter for other general examination documented in this encounter Care Teams Stove Carriage Operator Relationship Specialty Start Date End Date Unknown, Provider, PCP - General 01/26/17 documented as of this encounter
--- OUTSIDE RECORDS SUMMARY | 2022-03-05 00:44 | XMS_ITS | Encounter Summary ---
:1985 Author Organization [facility] Address [address] [place] [address] Care Team Providers Name Role Phone Unknown, Provider Primary Care Provider Encounter Details Date Type Department Care Team Description 01/30/2020 Lab Requisition [facility] Outr Resulting Lab, Pathology & Laboratory Provider [facility] [address] [place] [address] Social History Tobacco Use Types Packs/Day Years Used Date Never Assessed Sex Assigned at Date Recorded Not on file documented as of this encounter Plan of Treatment Not on filedocumented as of this encounter Procedures Procedure Name Priority Date/Time Associated Comments Diagnosis DO NOT ORDER Today 01/30/2020 9:13 EDT Results for this STANDALONE - BROAD procedure are in COVID TEST the results section. COVID-19 TESTING Routine 01/30/2020 9:13 EDT Resu lts for this procedure are i n the results section. documented in this encounter Results DO NOT ORDER STANDALONE - BROAD COVID TEST (01/30/2020 9:13 EDT) COVID-19 rt-PCR NEGATIVE Negative [facility] Result Comment: LABORATORY 2019-novel Coronavirus (2019 -nCoV) not detected by the qRT-PCR assay. Consider testing for other respiratory viruses or re-collecting for 2019-nCoV testing. Note: Optimum timing for peak viral levels du ring infections caused by 20 -nCoV have not been determined. Collection of multiple specimens from the same patient may be necessary to detect the virus. Limitations Positive results are indicat milli of active infection with SARS-CoV-2 but do not rule out bacterial infection or co-infection with other viruses. The agent detected may not be the definite cause of diseas e. In addition, detection of viral RNA may not indicate the presence of infectious virus or that SARS-CoV-2 is the causative agent for clinical symptoms. Negative results do not prec lude SARS-CoV-2 infection and should not be used as the sole basis for patient management decisions. Negative results must be combined with clinical observations, patient his tory, and epidemiological in formation. False negative results may also occur if amplification inhibitors are present in the specimen or if inadequate numbers of organisms are present in the specimen. Op timum specimen types and mecca ing for peak viral levels during infections caused by SARS-CoV-2 have not been fully determined. Collection of multiple specimens (types and time points) from the same patient may be necessary to detect the virus. The test was validated for u with upper respiratory specimens obtained via nasopharyngeal or oropharyngeal swabs in VTM, UTM, M4, M5, M6, saline, and MTM media. The performance of this test has not be en established for other spe cimens. Specimens collected using other FDA recommended Specimen Collection Materials listed in the FDA COVID-19 [employer] communication (November 15, 2019) are pr ocessed with the caveat that they were not all validated for use with this test and the result must be interpreted in this context. Furthermore, a false negative results may occur if a specimen is improperly collected, transported or handled. If the virus mutates in the RT-PCR target region, SARS-CoV-2 may not be detected or may be detected less predictably. Inhibitors or other types of interference may produce a false negative result. An interference study evaluating the effect of common cold medications was not performed. This test is not FDA-cleared but its performance characteristics were established by our CLIA-certified, CAP-accredited, high complexity laboratory in accordance with CLIA regulations, College of [employer] an Pathologists (CAP) guidel lucinda (Nov 08, 2019), and FDA guidance (Oct 20, 2019). This test is only for use un candice the Food and Drug Administration's Emergency Use Authorization. Specimen Swab - Entire nasopharynx (body structur e) Performing Organization Address City/State/ZIP Code Phon e Number [facility] [place], [place] COVID-19 TESTING (01/30/2020 9:13 EDT) COVID-19 rt-PCR NEGATIVE Negative [facility] Result Comment: LABORATORY 2019-novel Coronavirus (2019 -nCoV) not detected by the qRT-PCR assay. Consider testing for other respiratory viruses or re-collecting for 2019-nCoV testing. Note: Optimum timing for peak viral levels du ring infections caused by 20 19-nCoV have not been determined. Collection of multiple specimens from the same patient may be necessary to detect the virus. Limitations Positive results are indicat milli of active infection with SARS-CoV-2 but do not rule out bacterial infection or co-infection with other viruses. The agent detected may not be the definite cause of diseas e. In addition, detection of viral RNA may not indicate the presence of infectious virus or that SARS-CoV-2 is the causative agent for clinical symptoms. Negative results do not prec lude SARS-CoV-2 infection and should not be used as the sole basis for patient management decisions. Negative results must be combined with clinical observations, patient his tory, and epidemiological in formation. False negative results may also occur if amplification inhibitors are present in the specimen or if inadequate numbers of organisms are present in the specimen. Op timum specimen types and mecca ing for peak viral levels during infections caused by SARS-CoV-2 have not been fully determined. Collection of multiple specimens (types and time points) from the same patient may be necessary to detect the virus. The test was validated for u with upper respiratory specimens obtained via nasopharyngeal or oropharyngeal swabs in VTM, UTM, M4, M5, M6, saline, and MTM media. The performance of this test has not be en established for other spe cimens. Specimens collected using other FDA recommended Specimen Collection Materials listed in the FDA COVID-19 [employer] communication (November 15, 2019) are pr ocessed with the caveat that they were not all validated for use with this test and the result must be interpreted in this context. Furthermore, a false negative results may occur if a specimen is improperly collected, transported or handled. If the virus mutates in the RT-PCR target region, SARS-CoV-2 may not be detected or may be detected less predictably. Inhibitors or other types of interference may produce a false negative result. An interference study evaluating the effect of common cold medications was not performed. This test is not FDA-cleared but its performance characteristics were established by our CLIA-certified, CAP-accredited, high complexity laboratory in accordance with CLIA regulations, College of [employer] an Pathologists (CAP) guidel lucinda (Nov 08, 2019), and FDA guidance (Oct 20, 2019). This test is only for use un candice the Food and Drug Administration's Emergency Use Authorization. Performing Lab [facility] LABORATORY SERVICES Specimen Swab Performing Organization Address City/State/ZIP Code Phon e Number [facility] [address] [place] [address] SERVICES [facility] [place], [place] documented in this encounter Visit Diagnoses Not on filedocumented in this encounter Care Teams Vice President Medical Affairs Relationship Specialty Start Date End Date Unknown, Provider, PCP - General 01/26/17 documented as of this encounter
--- OUTSIDE RECORDS SUMMARY | 2022-03-05 00:44 | XMS_ITS | Encounter Summary ---
:1985 Author Organization [facility] Address [address] [place] [address] Care Team Providers Name Role Phone Unknown, Provider Primary Care Provider Encounter Details Date Type Department Care Team Description 07/26/2019 Lab Requisition [facility] Unknown, Provider, Pathology & Laboratory [facility] [address] [place] [address] [place] [address] Social History Tobacco Use Types Packs/Day Years Used Date Never Assessed Sex Assigned at Date Recorded Not on file documented as of this encounter Plan of Treatment Not on filedocumented as of this encounter Procedures Procedure Name Priority Date/Time Associated Diagnosis Comme nts HEPATITIS B SURFACE Routine 07/26/2019 10:56 Resu lts for this ANTIBODY EST procedure are i n the results section. documented in this encounter Results HEPATITIS B SURFACE ANTIBODY (07/26/2019 10:56 EST) Hep B Surface Ab, >1000.0 See Note [facility] Quantitative Comment: mIU/mL [facility] Reference Range for Hep B Surface Ab, Quant: SERVICES Positive: >= 10.0 mIU/mL Negative: ??< 10.0 mIU/mL Patient is presumed to be immune to infection with Hep atitis B Virus. Hep B Surface Ab, Positive See Note [facility] Qualitative Comment: [facility] SERVICES Reference Range for Hep B Surface Ab, Qual: Unvaccinated: ??Negative Vaccinated: ??Positive Specimen Blood - Venous blood (substance) Performing Organization Address City/State/ZIP Code Phon e Number [facility] [address] [place] [address] SERVICES documented in this encounter Visit Diagnoses Not on filedocumented in this encounter Care Teams Content Editor Relationship Specialty Start Date End Date Unknown, Provider, PCP - General 01/26/17 documented as of this encounter
--- OUTSIDE RECORDS SUMMARY | 2022-03-05 00:44 | XMS_ITS | Encounter Summary ---
:1985 Author Organization [facility] Address [address] [place] [address] Care Team Providers Name Role Phone Unknown, Provider MD Primary Care Provider Encounter Details Date Type Department Care Team Description 07/26/2019 Lab Requisition [facility] Unknown, Provider, Pathology & Laboratory [facility] [address] [place] [address] [place], [place] [address] [phone] Social History Tobacco Use Types Packs/Day Years Used Date Never Assessed Sex Assigned at Date Recorded Not on file documented as of this encounter Plan of Treatment Not on filedocumented as of this encounter Procedures Procedure Name Priority Date/Time Associated Diagnosis Comme nts MEASLES IGG AB Routine 07/26/2019 10:56 Results f or this EST procedure are i n the results section. RUBELLA IGG Routine 07/26/2019 10:56 Results for this ANTIBODY EST procedure are i n the results section. VARICELLA IGG Routine 07/26/2019 10:56 Results fo r this ANTIBODY EST procedure are i n the results section. MUMPS ANTIBODY IGG Routine 07/26/2019 10:56 Resul ts for this EST procedure are i n the results section. documented in this encounter Results MEASLES IGG AB (07/26/2019 10:56 EST) Measles IgG Ab PositiveComment: See Note [facility] Presence of LABORATORY SERVICES detectable measles virus IgG antibodies. Specimen Blood - Venous blood (substance) Performing Organization Address City/[facility]/ZIP Code Phon e Number [facility] [address] [place] [address] SERVICES VARICELLA IGG ANTIBODY (07/26/2019 10:56 EST) Varicella IgG Ab PositiveComment: See Note [facility] Presence of LABORATORY SERVICES detectable Varicella Zoster virus IgG antibodies. Specimen Blood - Venous blood (substance) Performing Organization Address City/[facility] Phon e Number [facility] [address] [place] [address] SERVICES MUMPS ANTIBODY IGG (07/26/2019 10:56 EST) Mumps Antibody IgG PositiveComment: See Note [facility] Presence of LABORATORY SERVICES detectable mumps virus IgG antibodies. Specimen Blood - Venous blood (substance) Performing Organization Address [facility]/ZIP Code Phon e Number [facility] [address] [place] [address] SERVICES RUBELLA IGG ANTIBODY (07/26/2019 10:56 EST) Rubella IgG Ab PositiveComment: See Note [facility] Positive for IgG LABORATORY SERVICES antibodies to Rubella virus. Specimen Blood - Venous blood (substance) Performing Organization Address [facility] Code Phon e Number [facility] [address] [place] [address] SERVICES documented in this encounter Visit Diagnoses Not on filedocumented in this encounter Care Teams Securities Analyst Relationship Specialty Start Date End Date Unknown, Provider, PCP - General 01/26/17 documented as of this encounter
--- OUTSIDE RECORDS SUMMARY | 2022-03-05 00:44 | XMS_ITS | Clinical Summary ---
:1985 Author Organization [facility] Address [address] [place] [address] Care Team Providers Name Role Phone Unknown, Provider Primary Care Provider Social History Tobacco Use Types Packs/Day Years Used Date Never Assessed Sex Assigned at Date Recorded Not on file Plan of Treatment Health Maintenance Due Date Last Done Comments Hepatitis C Screen 1985 COVID-19 Vaccine (1) 1996 Care Teams Undercutter Operator Relationship Specialty Start Date End Date Unknown, ProviderMD PCP - General 01/26/17
--- OUTSIDE RECORDS SUMMARY | 2022-03-05 00:44 | XMS_ITS | Encounter Summary ---
:1985 Author Organization [facility] Address [address] [place] [address] Care Team Providers Name Role Phone Unknown, Provider Primary Care Provider Encounter Details Date Type Department Care Team Description 12/11/2020 Lab Requisition [facility] Outr Resulting Lab, Pathology & Laboratory Provider [facility] [address] [place], [place] [address] Social History Tobacco Use Types Packs/Day Years Used Date Never Assessed Sex Assigned at Date Recorded Not on file documented as of this encounter Plan of Treatment Not on filedocumented as of this encounter Procedures Procedure Name Priority Date/Time Associated Diagnosis Comme nts [facility] 12/11/2020 13:00 LAB PCR EDT COVID-19 TESTING Routine 12/11/2020 13:00 Results for this EDT procedure are i n the results section. documented in this encounter Results COVID-19 TEST [facility] LAB PCR (12/11/2020 13:00 EDT) Specimen Swab - Entire nasopharynx (body structur e) Performing Organization Address City/State/ZIP Code Phon e Number [facility] [address] [place] [address] SERVICES COVID-19 TESTING (12/11/2020 13:00 EDT) COVID-19 rt-PCR Negative Negative [facility] Result Comment: [facility] This test [...] and epidemiological informatio n. Performed on the [employer] Fusion instrument Performing Lab [place] [facility] Lab [facility] LABORATORY SERVICES Specimen Swab Performing Organization Address City/State/ZIP Code Phon e Number [facility] [address] [place] [address] SERVICES documented in this encounter Visit Diagnoses Not on filedocumented in this encounter Care Teams Log Roller Relationship Specialty Start Date End Date Unknown, Provider, PCP - General 01/26/17 documented as of this encounter
--- OUTSIDE RECORDS SUMMARY | 2022-03-05 00:44 | XMS_ITS | Encounter Summary ---
:1985 Author Organization [facility] Address [address] [place] [address] Care Team Providers Name Role Phone Unknown, Provider Primary Care Provider Encounter Details Date Type Department Care Team Description 08/10/2017 Results Only [facility] Tacos Salcido MD [phone] [place] [phone] (Wo rk) Social History Tobacco Use Types Packs/Day Years Used Date Never Assessed Sex Assigned at Date Recorded Not on file documented as of this encounter Plan of Treatment Not on filedocumented as of this encounter Procedures Procedure Name Priority Date/Time Associated Diagnosis Comme [facility] SURGICAL PATHOLOGY Routine 08/10/2017 8:19 EST Re sults for this procedure are i n the results section. documented in this encounter Results SURGICAL PATHOLOGY (08/10/2017 8:19 EST) Pathology Report: SURGICAL PATHOLOGY REPORT [facility] Reports generated via electronic interface contain starla ginal data; LABORATORY however they are lacking the format of the original re port. SERVICES Caution should be taken when reading/interpreting unfo rmatted reports. Name: ? MARTHA GRAY ? Accession #: ? [id number] ? : ? 1985 (Age: 2 2) ??F ? Collect Date: ? 08/10/2017 ? Location: ? [facility] ? Receive Date: ? 017 ? Provider: TACOS SALCIDO MD Copy to: JASON BINGHAM IMPROVEMENT INTERN ? Final Pathologic Diagnosis: SMALL INTESTINE, DUODENUM, BIOPSY: - Duodenal mucosa with no specific pathologic features . Document reviewed and electronically signed by: SHAVONNE CAMPOS MD Report ??Date: 08/11/2017 14:22 By the signature above, the attending physician certif ies that he/she has personally conducted a gross and/or microscopic examin ation of the described specimens and rendered or confirmed the above diagnosi s. Specimen(s) Received: Bx duodenum Clinical History: Epigastric pain; mild duodenitis Gross Description: ? Received in formalin labelled with proper patient identification (initials B, K) and duodenum bx is a single ligh t golden tissue fragment (0.5 x 0.2 x 0.2 cm). Submitted intact in 1. Poncho Baltazar 08/11/2017 8:55 AM End of Report Specimen Performing Organization Address City/State/ZIP Code Phon e Number [facility] [address] [place] [address] SERVICES documented in this encounter Visit Diagnoses Not on filedocumented in this encounter Care Teams Bread Oven Operator Relationship Specialty Start Date End Date Unknown, Provider, PCP - General 01/26/17 documented as of this encounter
--- OUTSIDE RECORDS SUMMARY | 2022-03-05 00:44 | XMS_ITS | Encounter Summary ---
:1985 Author Organization [facility] Address [address] [place] [address] Care Team Providers Name Role Phone Unknown, Provider Primary Care Provider Encounter Details Date Type Department Care Team Description 01/25/2017 Results Only [facility] Mehran Guerrero MD [phone] [address] [place] [address] Social History Tobacco Use Types Packs/Day Years Used Date Never Assessed Sex Assigned at Date Recorded Not on file documented as of this encounter Plan of Treatment Not on filedocumented as of this encounter Procedures Procedure Name Priority Date/Time Associated Diagnosis Comme nts PAP TEST- RESULT Routine 01/25/2017 0:00 EDT Resu lts for this ONLY procedure are i n the results section. documented in this encounter Results PAP TEST- RESULT ONLY (01/25/2017 0:00 EDT) Pathology Report: CYTOPATHOLOGY REPORT [facility] Reports generated via electronic interface contain starla ginal data; SERVICES however they are lacking the format of the original re port. Caution should be taken when reading/interpreting unfo rmatted reports. Name: ? MARTHA GRAY ? Accession #: ? [id number] ? : ? 1985 (Age: 2 2) ??F ?Collect Date: ? 2016 ? Location: ? [facility] ? Receive Date: ? 7 ? Provider: MEHRAN GUERRERO MD Copy to: ? Final Report SPECIMEN ADEQUACY ? Satisfactory for Evaluation - transformation zone component present GENERAL CATEGORIZATION ? Negative for Intraepithelial Lesion or Malignan cy ?? Last Menstrual Period: 01/16/17 Hormonal/Contraceptive status: None Other: Additional clinical information: gardisil x3 Additional clinical information: low risk PAP hx Specimen/Source: ??Pap Test, Cervix, ThinPrep Imaging System with manual evaluation Document reviewed and electronically signed by: ? CAITLYN Torres(ASCP) ? Report ??Date: 02/03/2017 12:55 HPV with Pap Test ? Date Ordered: ? 02/03/2017 ? Status: ?? Signed Out ?Date Complete: ? 02/04/2017 ? By: ??Sy stem Interface ? Date Reported: ? 02/04/2017 ? Interpretation RESULT: Negative for HPV. No E6 or E7 mRNA is detected from HPV types 16,18,31,3 3,35, 39,45,51,52,56,58,59,66, and 68 by independent living specialist media [place] amplification. Comments Document reviewed and electronically signed by: ? System Interface ? Report date: 02/04/2017 By the signature above, the attending physician certif ies that he/she has personally conducted a gross and/or microscopic examin ation of the described specimens and rendered or confirmed the above diagnosi s. End of Report Specimen Performing Organization Address City/State/ZIP Code Phon e Number [facility] [address] [place] [address] SERVICES documented in this encounter Visit Diagnoses Not on filedocumented in this encounter Care Teams Hydraulic Governor Assembler Relationship Specialty Start Date End Date Unknown, Provider, PCP - General 01/26/17 documented as of this encounter
--- NOTE | 2022-03-05 06:45 | DI.CT_ITS ---
Exam(s) CT NECK W EXAM: CT NECK W CLINICAL HISTORY: right Nasopharyngeal mass,Hx tonsillectomy,j39.2. TECHNIQUE: Imaging Protocol: Axial computed tomography images with coronal and sagittal reformatted images were created and reviewed. CONTRAST MATERIAL: Intravenous: Omnipaque 350 Contrast volume:100mL COMPARISON: No exams were available for comparison FINDINGS: The examination is limited due to patient motion artifact. Orbits and orbital soft tissues: Within normal limits. Visualized paranasal sinuses: There is opacification of a left ethmoid air cell. The remaining visu alized paranasal sinuses are clear as are the mastoid air cells. Nasopharynx: There is a 1.1 x 1.0 cm fluid attenuation nonenhancing mass in the right nasopharynx ad jacent to the uvula. Oropharynx: Within normal limits. Hypopharynx: Within normal limits. Larynx: Within normal limits. Retropharyngeal space: Within normal limits. Parotids/submandibular: Within normal limits. Thyroid gland: Within normal limits. Lymphadenopathy: There is scattered lymph nodes seen along the level one to level three all measurin g less than 8 mm in short axis diameter which are physiologic in nature. Trachea: Within normal limits. Lung apices: Within normal limits. Bones: Within normal limits for the patient's age. Carotids/Jugular: Within normal limits. Soft tissues: Within normal limits. IMPRESSION: 1. 1.1 x 1.0 cm hypodense nonenhancing mass in the right nasopharynx adjacent to the uvula. Differen tial considerations include abscess, retention cyst, inclusion cysts, or lymphangioma. Neoplastic pr ocess cannot be entirely excluded. 2. No cervical adenopathy. RADIATION DOSE DELIVERED: 184.59mGy.cm Total DLP 184.59mGy.cm Total DLP DATA REPOSITORY: All CT scans at this facility are submitted to the National Radiology Data Registry (NRDR) Dose Index Registry (DIR) with the [employer] (ACR). RADIATION OPTIMIZATION: All CT scans at this facility use at least one of these dose optimization te chniques: automated exposure control; mA and/or kV adjustment per patient size (includes targeted exa ms where dose is matched to clinical indication); or iterative reconstruction.
[2022-03-05] MEDS: Omnipaque 350 MG/ML 100 ML BTL IJ (08:51)
== END ==
PROVIDERS: PCP Nurse Practitioner Family; Visit Provider Otolaryngology
DX: J39.2 Other diseases of pharynx (principal); Z90.89 Acquired absence of other organs
CPT/HCPCS: 70491; J3490

== ENCOUNTER 2022-03-12 15:44 | Outpatient (REF) | payer OTHER, SELFPAY ==
[2022-03-12 10:19] LABS: Source Nasal/Nares
[2022-03-12 15:07] LABS: COVID-19 PCR Negative (Negative)
== END 2022-03-12 15:45 | disposition home or self-care (01) ==
LOC: LBN 15:44
PROVIDERS: PCP Nurse Practitioner Family; Visit Provider Otolaryngology
DX: Z20.822 Contact with and (suspected) exposure to COVID-19 (principal); Z01.818 Encounter for other preprocedural examination
CPT/HCPCS: 87635

== ENCOUNTER 2022-03-15 06:49 | Day surgery (SDC) | payer OTHER, SELFPAY ==
[2022-03-15] VITALS (7 sets, daily range): BP systolic 100–121; BP diastolic 54–84; PULSE 70–87; RESP 12–18; TEMP 36–36.6; O2SAT 94–100; BMI 19.9
--- NOTE | 2022-03-15 06:17 | W.ANESPRE ---
General Info Date of Service Date Performed: 03/15/22 Height: 5 ft 5 in Weight: 54.4 kg Body Mass Index (BMI): 19.9 Surgical Procedure: Operation Date: 03/15/22 08:25 Proposed Procedure Side Surgeon p Oropharyngeal Mass Excision Bay Latif MD Meds Allergies and Home Medications Allergies Allergy/AdvReac Type Severity Reaction Status Date / Time nitrofurantoin Allergy Verified 03/15/22 07:14 [From Macrobid] Sulfa (Sulfonamide AdvReac Severe N/V Verified 03/15/22 07:14 Antibiotics) Home Medication Medication Instructions Recorded famotidine 20 mg tablet 20 mg PO BID 12/08/21 ibuprofen 800 mg tablet 800 mg PO TID 12/08/21 metoclopramide HCl 10 mg tablet 10 mg PO Q6H PRN 12/08/21 simethicone 80 mg chewable tablet 80 mg PO BID-QID PRN 12/08/21 diphenhydramine HCl 25 mg capsule 25 mg PO TID PRN 03/15/22 (Benadryl) Current Visit Medications: Current Medications Generic Name Dose Route Start Last Admin Trade Name Freq PRN Reason Stop Dose Admin Ringer's Solution 1,000 mls @ 80 mls/hr 03/15/22 06:00 IV 04/11/22 23:59 INFUSION SHERLYN Tranexamic Acid 1,000 mg/ 60 mls @ 360 mls/hr 03/15/22 06:00 Sodium Chloride IVPB 03/15/22 23:59 DIRECTED SHERLYN Cefazolin Sodium/Dextrose 2 gm in 50 mls @ 100 mls/hr 03/15/22 06:00 Ancef Duplex IVPB 04/11/22 23:59 PREOP SHERLYN IV Miscellaneous Supplies 1 each 03/15/22 06:00 Iv Access IV 04/11/22 23:59 DIRECTED SHERLYN Sodium Chloride 0 ml 03/15/22 06:00 Normal Saline Flush 10 Ml Syr IV 04/11/22 23:59 PRN PRN Sodium Chloride 0 ml 03/15/22 06:00 Normal Saline 10 Ml Vial IJ 04/11/22 23:59 DIRECTED PRN Sterile Water 0 ml 03/15/22 06:00 Water,Injection,Sterile 10 Ml Vial IJ 04/11/22 23:59 DIRECTED PRN PFSH Active Problems Active Problems: Problem Status Onset Code Infertility, female 06/06/17 N97.9 History of endometriosis 01/25/17 Z87.42 Thrombosed external hemorrhoid K64.5 Constipation by delayed colonic transit K59.01 Encounter for screening for other viral diseases Z11.59 Dysmenorrhea N94.6 Renal calculus, bilateral N20.0 Ovarian mass, left N83.8 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 Endometriosis Hemorrhoid Infertility Left flank pain Pharyngeal swelling Recurrent kidney stones Scoliosis Swelling of tonsil Surgical History Surgical History History of biopsy labial History of tonsillectomy and adenoidectomy [place] mass aprox 2005 History of wisdom tooth extraction Tobacco Smoking/Tobacco Use Status: Never Alcohol Alcohol Intake: current Alcohol intake frequency: a few times a week Substance Use Substance use: Never Substance use type: does not use Prental History History 0 Para Hx # Term Pregnancies Multiple births Hx # Pregnancies Ectopic pregnancies AB induced Hx Number of Living Children AB spontaneous Vital Signs and Lab Results Lab Results Blood Type / Crossmatch: No Data to Display Complete Blood Count: No Data to Display Complete Metabolic Panel: No Data to Display Liver Function Panel: No Data to Display Coagulation Panel: No Data to Display Cardiac Panel: No Data to Display Arterial Blood Gas: No Data to Display Venous Blood Gas: No Data to Display Pancreas Panel: No Data to Display Thyroid Panel: No Data to Display Infectious Disease: Coronavirus (COVID-19)(PCR) Negative (Negative) 03/12/22 08:30 Coronavirus 2019 Source Nasal/Nares 03/12/22 08:30 Blood Cultures: No Data to Display Toxicology Panel: No Data to Display Panel: No Data to Display Anesthesia Assessment and Plan Anesthesia History Personal History: No History of Anesthesia Complications Family History: No Family History of Anesthesia Complications Exercise Tolerance Exercise Tolerance: Metabolic Equivalents>4 Cardiac & Pulmonary Exam Cardiac Exam: Normal S1/S2 Heart Sounds Pulmonary Exam: Clear Bilateral Breath Sounds Implantable Cardiac Device Does patient have a Pacemaker or an ICD?: No Airway Exam Known Difficult Airway: No Mallampati Class: 1 Mouth Opening: Normal (> 3cm) Thyromental Distance: Greater than 3 cm Neck Range of Motion: Full ROM Neck Circumference: Normal Teeth Condition: Normal Dentition ASA Classification ASA Score: ASA 2 Emergency Case?: No NPO Status NPO Status: NPO Clears >2 hours, Solids >8 hours Status Status: Negative HCG Anesthesia Plan Resuscitation Status: Full Code Anesthesia Technique: General Anesthesia Airway Planned: Endotracheal Tube Monitors Used: Standard Monitors Preoperative Comments:: 36 yo female for removal is nasopharyngeal mass. Sig PMHx: Bechet's dz, endometriosis, never smoker, occ EtOH. does get motion sick, will scop patch
[2022-03-15] MEDS: Lactated Ringers 1,000 ML 80 ML IV (07:55)
[2022-03-15] MEDS: ceFAZolin 2 GM/50 ML BAG IVPB (08:04)
--- NOTE | 2022-03-15 08:25 | PHAR_PTH ---
PATIENT: Aruna Gray LOC: [facility] U#:[id number] AGE/SX: 36/F ROOM: RE03/15/[address]: Bay Latif MD : [id number] BED: DIS: 03/15/2022 SPEC #: [id number] RECD: 03/15/22 12:34 STATUS: SONAL REQ #: [id number] JOHNNIE: 03/15/22 08:[address]: Bay Latif DEPT: Surgical Specimen RECD BY: Anitha Valenzuela ENTERED: 03/15/22 12:36 SP TYPE: PHAR LISSETT DR: MIMI KIM NP Tissues: 1 - PHARYNX BIOPSY Procedures: GROSS AND MICRO LEVEL 4 Comments: [id number]
--- NOTE | 2022-03-15 08:35 | ROE_ITS ---
Operative Note Operative Note DATE OF PROCEDURE: 03/15/22 PRE-OP DIAGNOSIS: right oropharyngeal/nasopharyngeal mass PROCEDURE: marsupialization of right Opx/Npx cyst SURGEON: Bay Latif ANESTHESIA TYPE: General LMA/ETT Refer to Anesthesia Record ESTIMATED BLOOD LOSS: 1 PATHOLOGY: other (medial aspect cyst wall) COMPLICATIONS: None Patient was transported to: PACU Patient's condition: stable Indications: pt with the above problem. options reviewed. she elected to undergo the above procedure Findings: Cystic structure, unilocular, submucosal, no obvious lateral extension, filled with brown nonmalodorous material. Cyst appears to be thin-walled and lined with mucosa Procedure Description: After obtaining an adequate level of general endotracheal anesthesia a Melanie- Won mouthgag was carefully introduced into the oral cavity after the patient was prepped and draped in appropriate fashion. A red rubber catheter was passed through the right nares and gently used to retract the right soft palate out of the way, allowing visualization of the medial aspect of the mass. A 20-gauge needle was then used to penetrate into the mass, and half of a cc of brown thin liquid was removed. Following this, having deemed that this is not a vascular mass, the medial aspect of the mass was pulled gently using pituitaries, and then a wide marsupialization of the cystic structure was performed. The medial aspect of the cyst was sent to pathology in formalin. Examination of the residual cyst did not reveal any secondary loculations, and revealed no thickening of the mucosa to suggest a neoplastic process. As such, given her Behcet's syndrome, the decision was made not to excise the entire cyst but to hopefully marsupialize this instead, affording her less tissue across which she had to heal. Following this and after ensuring adequate hemostasis, the Melanie- Won mouthgag was relaxed and removed. The dentition was examined revealing no damage to dentition. The patient was then awakened and extubated by anesthesia and taken to recovery room in stable condition. I was present throughout the entire case.
--- NOTE | 2022-03-15 09:00 | PDOC.DSDIS_ITS ---
Discharge Plan Disposition Patient Disposition: HOME Condition: Good Discharge Details Attending Provider: Bay Latif Primary Care Provider: MIMI KIM Home Meds and New Rx's Prescriptions: No Action famotidine 20 mg tablet 20 mg PO BID metoclopramide HCl 10 mg tablet 10 mg PO Q6H PRN ibuprofen 800 mg tablet 800 mg PO TID simethicone 80 mg tablet,chewable 80 mg PO BID-QID PRN diphenhydramine HCl [Benadryl] 25 mg Capsule 25 mg PO TID PRN Discharge Instructions Additional Instructions: Call with any concerns or problems. Tylenol or ibuprofen for discomfort. The patient should not drive for at least 48 hours following general anesthetic. My cell phone number is [phone] Referrals: Bay Latif MD [ [facility] STAFF PHYSICIAN] - (2 weeks, please call for appointment prior to patient's departure) Activity:: Activity as Tolerated Diet:: As Tolerated Discharge Orders Discharge Orders: Discharge Order (Routine); Ordered 03/15/22 Ordered By: Bay Latif
--- NOTE | 2022-03-15 09:14 | W.ANESPOSTOP ---
Postoperative Evaluation Date, Time and Location Date Performed: 03/15/22 Time Performed: 09:14 Patient Location: Day Surgery Unit Vital Signs Most Recent Imported Vital Signs: Most Recent Vital Signs Temp Pulse Resp BP Pulse Ox 36.6 C 80 12 121/54 L 99 03/15/22 08:59 03/15/22 08:59 03/15/22 08:59 03/15/22 08:59 03/15/22 08:59 Pain Score Most Recent Pain Score: Most Recent Pain Score Pain Level 3 03/15/22 07:08 Assessment Mental Status: Awake (Alert & Oriented to Patient Baseline) Airway and Respiratory Function: Patent airway with normal (patient baseline) respiratory exam Cardiovascular Function: Hemodynamically Stable Hydration Status: Adequately Hydrated Nausea & Vomiting: No Nausea or Vomiting Pain: Pain is tolerable per patient Peripheral Nerve Block: Patient did not receive a nerve block
== END 2022-03-15 10:44 | disposition home or self-care (01) ==
PROVIDERS: PCP Nurse Practitioner Family; Visit Provider Otolaryngology
PROC: (CPT 42410; principal; 2022-03-15 09:45)
DX: J39.2 Other diseases of pharynx (principal); J31.2 Chronic pharyngitis
CPT/HCPCS: 42804; 42310; 88305; J0131; J0690; J1100; J2250; J2405; J2704

== ENCOUNTER 2022-03-28 07:45 | Outpatient (CLI) | payer OTHER, SELFPAY ==
[2022-03-28 08:03] LABS: Source Nasal/Nares
[2022-03-28 11:49] LABS: COVID-19 PCR Negative (Negative)
== END 2022-03-28 07:46 | disposition home or self-care (01) ==
LOC: LBO 07:45
PROVIDERS: PCP Nurse Practitioner Family; Visit Provider Family Medicine
DX: Z20.822 Contact with and (suspected) exposure to COVID-19 (principal)
CPT/HCPCS: 87635

== ENCOUNTER 2022-04-12 15:37 | Outpatient (REF) | payer OTHER, SELFPAY | END 2022-04-12 15:38 | disposition home or self-care (01) | LOC: LBN 15:37 | PROVIDERS: PCP Nurse Practitioner Family; Visit Provider Urology | DX: R31.9 Hematuria, unspecified (principal) | CPT/HCPCS: 87086 ==

== ENCOUNTER 2022-04-16 18:54 | Emergency (ER) | payer OTHER, SELFPAY ==
[2022-04-16 18:57] VITALS: BP 129/80; PULSE 114; RESP 14; TEMP 37.1; O2SAT 99
[2022-04-16] MEDS: ACETAMINOPHEN 1,000 MG/100 ML BTL 400 MG IVPB (20:00)
[2022-04-16] MEDS: Normal Saline 1,000 ML 1000 ML IV (20:01)
[2022-04-16 20:11] LABS: Abs Immature Grans 0.04 10^3/uL (0.0-0.06); Absolute Basophil Count 0.04 10^3/uL (0.0-0.2); Absolute Eosinophil Count 0.12 10^3/uL (0.0-0.7); Absolute Lymphocyte Count 0.91 10^3/uL (1.2-3.4); Absolute Monocyte Count 0.66 10^3/uL (0.1-0.8); Absolute Neutrophil Count 8.67 10^3/uL (1.2-6.7); Basophils % 0.4; Eosinophils % 1.1; HCT 39.8 % (36.0-46.0); HGB 13.1 g/dL (11.2-15.7); Immature Grans % 0.4; Lymphocytes % 8.7; MCH 30.4 pg (27.0-33.0); MCHC 32.9 % (32.0-36.0); MCV 92 fL (80-95); MPV 10.1 fL (8.0-11.0); Monocytes % 6.3; Neutrophils % 83.1; Platelet Count 284 10^3/uL (130-400); RBC 4.31 10^6/uL (3.93-5.22); RDW 11.9 % (11.7-14.6); RDW-SD 40.6 fL; WBC 10.44 10^3/uL (4.4-10.8)
[2022-04-16 20:15] LABS: ALT 27 U/L (14-59); AST 15 U/L (15-37); Albumin 4.3 g/dL (3.4-5.0); Alkaline Phosphatase 74 U/L (46-116); Anion Gap 10.6 mmol/L (3-11); BUN 9 mg/dL (7-18); Bilirubin, Total 0.4 mg/dL (0.2-1.0); CO2 26.4 mmol/L (21.0-32.0); CREATININE 0.7 mg/dL (0.55-1.02); Calcium 9.1 mg/dL (8.5-10.1); Chloride 101 mmol/L (98-107); Glucose 86 mg/dL (74-106); Lipase 190 U/L (73-393); Potassium 3.4 mmol/L (3.5-5.1); Sodium 138 mmol/L (136-145); Total Protein 8.2 g/dL (6.4-8.2)
[2022-04-16 20:24] LABS: Bilirubin Negative (Negative); Blood Negative (Negative); Clarity Clear (Clear); Glucose Negative (Negative); Ketones 15 mg/dL (Negative); Leukocyte Esterase Negative (Negative); Nitrite Negative (Negative); Specific Gravity 1.025 (1.005-1.025); Urobilinogen 0.2 EU/dL (Up TO 0.2)
--- NOTE | 2022-04-16 20:51 | ED.GENADUL_ITS ---
Discharge Plan Disposition Patient Disposition: HOME Condition: Improving Discharge Details Clinical Impression: Enteritis, Colitis Primary Care Provider: MIMI KIM ED Provider: Lucero Springer Home Meds and New Rx's Prescriptions: New tramadol 50 mg tablet 50 mg PO TID PRN (Reason: pain) Qty: 7 0RF Continued famotidine 20 mg tablet 20 mg PO BID metoclopramide HCl 10 mg tablet 10 mg PO Q6H PRN ibuprofen 800 mg tablet 800 mg PO TID simethicone 80 mg tablet,chewable 80 mg PO BID-QID PRN diphenhydramine HCl [Benadryl] 25 mg Capsule 25 mg PO TID PRN Discharge Instructions Instructions: Colitis (ED), Enteritis (ED) Additional Instructions: Drink plenty of fluids and get plenty of rest. Follow a bland diet of crackers, rice, pretzels and toast for the next few days. Take Tylenol as needed and directed for pain. Take the tramadol as needed and directed for pain not relieved with Tylenol. You have been placed on general surgery's list for a follow-up appointment within the next 1 to 2 weeks for reevaluation and for referral for outpatient colonoscopy if indicated. You may need stool analysis if your diarrhea persists or worsens. Follow-up with your primary care doctor in 1 week. Call your general surgeon in [place] for reevaluation as needed. Follow up with urology for re- evaluation if urinary symptoms persist or worsen. Return to the emergency department with any worsening or new concerning symptoms such as fever, persistent vomiting, worsening pain or any other concerns. Discharge Data Discharge Date/Time-TO BE ENTERED AT DEPARTURE: 04/17/22 00:02 Discharge Physician: Lucero Springer Medical Decision Making 36-year-old female who is just over 2 weeks status post laparoscopic for endometriosis presents for lower abdominal pain, bilateral hip pain, lower back pain, urinary frequency, urgency and dysuria for the past week with report of low-grade temp at 100.4 today. Patient appears comfortable and nontoxic. Her heart rate is in the 110s. She is afebrile here. Her abdomen is soft and minimally tender in the lower quadrants. Her laparoscopic surgical scars are healing well without signs of cellulitis. She has no rigidity or guarding or signs of peritonitis. Differential diagnosis includes UTI, colitis, diverticulitis, gastroenteritis, postsurgical pain, postsurgical seroma or abscess. Also consider COVID. Will obtain screening labs, urinalysis. Urine test negative. Will obtain CT abdomen and pelvis and give IV Tylenol and bolus IV fluids. Labs and imaging reviewed. Normal white blood cell count. Potassium 3.4. Urinalysis notes ketones but no evidence of infection. COVID-negative. CT abdomen/pelvis notes: IMPRESSION: 1. Wall thickening of small bowel and colon as described likely multifocal enteritis and colitis.? Pattern less suggestive of malignancy.? 2. Mild dilation of the collecting systems, favor reflux from the distended urinary bladder. 3. Cystic structures associated with the left adnexa measuring up to 2 cm favor benign physiologic follicles.? Could be worked up with pelvic ultrasound. 4. Additional findings as described. Results discussed with patient at bedside. She states her pain is still mildly present. She was given a dose of IV Toradol and p.o. tramadol with relief. Vitals within normal limits. Patient feels comfortable going home. She was placed on general surgery follow-up list for further evaluation and discussion regarding her enteritis and colitis and whether outpatient colonoscopy is indicated for further evaluation. Urine culture negative this week. She is also aware of adnexal cysts and has had recent pelvic ultrasounds. Patient given tramadol to go and additional prescription sent electronically to her pharmacy. Advised to increase fluids, bland diet, follow-up with her surgeon in [facility] etts, primary doctor and urology. Usual and customary return precautions given prior to discharge. Medical Records Medical records reviewed: Yes I reviewed the patient's medical records. Imaging Data Radiologic Study: Radiologist's impression: CT Abdomen And Pelvis With Contrast Exam date and time: 04/16/2022 21:33 Age: 36 years old Clinical indication: Other: Lower abd pain, S/P laparoscopy TECHNIQUE: Imaging protocol: Computed tomography of the abdomen and pelvis with contrast. Contrast material: 350; Contrast volume: 76 ml; Contrast route: INTRAVENOUS (IV);? COMPARISON: CT ABDOMEN PELVIS WO 12/05/2021 07:52 FINDINGS: Liver: No mass. Gallbladder and bile ducts: No calcified stones. No ductal dilation. Pancreas: No ductal dilation. No masses.? Spleen: No splenomegaly or focal lesions. Adrenal glands: No mass. Kidneys and ureters: Bilateral nephrolithiasis again seen. Minor distention of both collecting systems with no obstructive appearing stones. Stomach and bowel: Circumferential wall thickening in the proximal right colon. This is present at least 2 separate locations. There is also likely some [id number] wall thickening of small bowel loops descending into the pelvis. No small bowel or colonic obstruction. Appendix: No evidence of appendicitis. Intraperitoneal space: Small cul-de-sac free fluid within physiologic limits. Vasculature: No abdominal aortic aneurysm. Lymph nodes: No significantly enlarged lymph nodes. Urinary bladder: The urinary bladder is distended. No urinary bladder wall thickening. Reproductive: Cystic structures associated with the left adnexa measuring up to 2 cm favor benign physiologic follicles. Normal CT appearance of the uterus. Bones/joints: No acute fracture. Soft tissues: No suspicious lesions.? IMPRESSION: 1. Wall thickening of small bowel and colon as described likely multifocal enteritis and colitis.? Pattern less suggestive of malignancy.? 2. Mild dilation of the collecting systems, favor reflux from the distended urinary bladder. 3. Cystic structures associated with the left adnexa measuring up to 2 cm favor benign physiologic follicles.? Could be worked up with pelvic ultrasound. 4. Additional findings as described. Lab Data Lab results reviewed: Yes I reviewed the patient's lab results. Labs: Laboratory Tests Range/Units 04/16/22 04/16/22 04/16/22 19:20 19:20 20:05 WBC (4.4-10.8) 10^3/uL 10.44 RBC (3.93-5.22) 10^6/uL 4.31 Hgb (11.2-15.7) g/dL 13.1 Hct (36.0-46.0) % 39.8 MCV (80-95) fL 92 MCH (27.0-33.0) pg 30.4 MCHC (32.0-36.0) % 32.9 RDW (11.7-14.6) % 11.9 Plt Count (130-400) 10^3/uL 284 MPV (8.0-11.0) fL 10.1 Immature Gran % 0.4 Neutrophils % 83.1 Lymphocytes % 8.7 Monocytes % 6.3 Eosinophils % 1.1 Basophils % 0.4 Nucleated RBC % (0.0-0.3) % 0.0 Absolute Neutrophils (1.2-6.7) 10^3/uL 8.67 H Absolute Lymphocytes (1.2-3.4) 10^3/uL 0.91 L Absolute Monocytes (0.1-0.8) 10^3/uL 0.66 Absolute Eosinophils (0.0-0.7) 10^3/uL 0.12 Absolute Basophils (0.0-0.2) 10^3/uL 0.04 Sodium (136-145) mmol/L 138 Potassium (3.5-5.1) mmol/L 3.4 L Chloride (98-107) mmol/L 101 Carbon Dioxide (21.0-32.0) mmol/L 26.4 Anion Gap (3-11) mmol/L 10.6 BUN (7-18) mg/dL 9 Creatinine (0.55-1.02) mg/dL 0.7 Estimated GFR/1.73 m2 (mL/min/1.73m2) >= 60.00 Glucose (74-106) mg/dL 86 Calcium (8.5-10.1) mg/dL 9.1 Total Bilirubin (0.2-1.0) mg/dL 0.4 AST (15-37) U/L 15 ALT (14-59) U/L 27 Alkaline Phosphatase (46-116) U/L 74 Total Protein (6.4-8.2) g/dL 8.2 Albumin (3.4-5.0) g/dL 4.3 Lipase (73-393) U/L 190 Urine Color (Yellow) Yellow Urine Clarity (Clear) Clear Urine pH (5-8) 6.0 Ur Specific Glover (1.005-1.025) 1.025 Urine Protein (Negative) mg/dL Negative Urine Ketones (Negative) mg/dL 15 H Urine Blood (Negative) Negative Urine Nitrite (Negative) Negative Urine Bilirubin (Negative) Negative Urine Urobilinogen (Up TO 0.2) EU/dL 0.2 Ur Leukocyte Esterase (Negative) Negative Urine Glucose (Negative) mg/dL Negative COVID-19 Source SARS-CoV-2 (PCR) (Negative) Range/Units 04/16/22 21:19 WBC (4.4-10.8) 10^3/uL RBC (3.93-5.22) 10^6/uL Hgb (11.2-15.7) g/dL Hct (36.0-46.0) % MCV (80-95) fL MCH (27.0-33.0) pg MCHC (32.0-36.0) % RDW (11.7-14.6) % Plt Count (130-400) 10^3/uL MPV (8.0-11.0) fL Immature Gran % Neutrophils % Lymphocytes % Monocytes % Eosinophils % Basophils % Nucleated RBC % (0.0-0.3) % Absolute Neutrophils (1.2-6.7) 10^3/uL Absolute Lymphocytes (1.2-3.4) 10^3/uL Absolute Monocytes (0.1-0.8) 10^3/uL Absolute Eosinophils (0.0-0.7) 10^3/uL Absolute Basophils (0.0-0.2) 10^3/uL Sodium (136-145) mmol/L Potassium (3.5-5.1) mmol/L Chloride (98-107) mmol/L Carbon Dioxide (21.0-32.0) mmol/L Anion Gap (3-11) mmol/L BUN (7-18) mg/dL Creatinine (0.55-1.02) mg/dL Estimated GFR/1.73 m2 (mL/min/1.73m2) Glucose (74-106) mg/dL Calcium (8.5-10.1) mg/dL Total Bilirubin (0.2-1.0) mg/dL AST (15-37) U/L ALT (14-59) U/L Alkaline Phosphatase (46-116) U/L Total Protein (6.4-8.2) g/dL Albumin (3.4-5.0) g/dL Lipase (73-393) U/L Urine Color (Yellow) Urine Clarity (Clear) Urine pH (5-8) Ur Specific Glover (1.005-1.025) Urine Protein (Negative) mg/dL Urine Ketones (Negative) mg/dL Urine Blood (Negative) Urine Nitrite (Negative) Urine Bilirubin (Negative) Urine Urobilinogen (Up TO 0.2) EU/dL Ur Leukocyte Esterase (Negative) Urine Glucose (Negative) mg/dL COVID-19 Source Nasal/Nares SARS-CoV-2 (PCR) (Negative) Negative HPI General Mode of arrival: ambulatory . Date/Time Provider Initiated Documentation: 08/26/22 19:29 . Limitations to Documentation: no limitations . Information obtained by: patient . HPI Narrative: Patient is just over 2 weeks status post laparoscopy for endometriosis performed in [place] presents with fever and lower abdominal pain for the past week. Patient states she has been feeling lower abdominal, lower back and bilateral hip pain for the past week. She states the pain feels sharp and crampy and radiates from her suprapubic and pelvic region straight through to her bowels and occasionally is in both of her hips. She states the pain feels so intense at times that it causes her to double over. She states she has increased pain with sitting, especially while driving causing her to sit mainly on one hip. She called her surgeon in [place] today regarding her symptoms and was advised to go to the ER if she develops a fever. She states she felt chilled this evening and developed a low-grade fever of 100.4. She has not taken any Tylenol or Motrin today. She also states a few days ago she developed urinary urgency and frequency and did a urine dipstick and noted leukocytosis and was started on Augmentin by Dr. Wiggins. She states she was told a few days later that her urine culture showed gram-positive cocci and she was advised to stop the Augmentin. She states she is still feeling urinary urgency and frequency. She also admits to watery brown diarrhea while taking the Augmen tin but states that the stools have become more formed but still loose. Related Data Home Medications Medication Instructions Recorded Confirmed famotidine 20 mg tablet 20 mg PO BID 12/08/21 04/16/22 ibuprofen 800 mg tablet 800 mg PO TID 12/08/21 04/16/22 metoclopramide HCl 10 mg tablet 10 mg PO Q6H PRN 12/08/21 04/16/22 simethicone 80 mg chewable tablet 80 mg PO BID-QID PRN 12/08/21 04/16/22 diphenhydramine HCl 25 mg capsule 25 mg PO TID PRN 03/15/22 04/16/22 (Benadryl) tramadol 50 mg tablet 50 mg PO TID PRN pain #7 tabs 04/16/22 Previous Rx's Medication Instructions Recorded tramadol 50 mg tablet 50 mg PO TID PRN pain #7 tabs 04/16/22 Allergies Allergy/AdvReac Type Severity Reaction Status Date / Time Sulfa (Sulfonamide AdvReac Severe N/V Verified 04/16/22 19:02 Antibiotics) nitrofurantoin AdvReac Porjectile Verified 04/16/22 19:02 [From Macrobid] vomiting General Stated Complaint: Abd Prob OSCAR: 3 Review of Systems All systems reviewed & are unremarkable except as noted in HPI and below Constitutional Constitutional: Denies chills, Denies excessive sweating, Denies fatigue, Denies fever(s), Denies weakness and Denies weight loss Eyes Eyes: Reports system reviewed and no additional complaints, except as documented and Denies blurry vision ENT Ears, Nose, Mouth, and Throat: Denies vertigo, Denies dizziness, Denies otalgia, Denies nasal congestion, Denies sore throat and Denies throat swelling Cardiovascular Cardiovascular: Denies chest pain, Denies syncope, Denies rapid heart rate and Denies dyspnea Respiratory Respiratory: Denies chest congestion, Denies cough, Denies pain on inspiration and Denies dyspnea Gastrointestinal Gastrointestinal: Reports abdominal pain, Denies diarrhea and Denies vomiting Genitourinary Genitourinary: Denies hematuria, Reports dysuria, Denies flank pain, Reports urinary urgency and Reports other (urinary frequency) Musculoskeletal Musculoskeletal: Denies back pain and Denies joint swelling Integumentary/Breasts Skin/Breast: Denies lesions and Denies rash Neurologic Neurologic: Denies behavioral changes, Denies confusion, Denies vertigo, Denies dizziness, Denies syncope, Denies localized weakness and Denies weakness Psychiatric Psychiatric: Denies behavioral changes, Denies confusion and Denies depression Endocrine Endocrine: Denies excessive sweating and Denies fatigue Hematologic/Lymphatic Hematologic/Lymphatic: Denies easy bruising and Denies lymphadenopathy Allergic/Immunologic Allergic/Immunologic: Denies throat swelling PFSH All Active Problems (Updated 04/16/22 @ 23:39 by Lucero Springer DO) Enteritis (Acute) Colitis (Acute) H/O ovarian cystectomy (Acute) 03/31/22. In [place]. Bilateral ovarian cystectomy for endometriomas. Endometriosis determined by laparoscopy (Acute) 03/30/22. Bilateral endometriomas. s/p ovarian cystectomies in [place]. Pharyngeal cyst (Acute) Infertility, female (Acute 01/25/17) pt sees Dr Gelacio FIERRO, and is s/p normal HSG, and 2 unsuccessful IUI procedures. 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 Endometriosis Hemorrhoid Infertility Left flank pain Pharyngeal swelling Recurrent kidney stones Scoliosis Swelling of tonsil Surgical History History of biopsy labial History of throat surgery Marsupialization of right oropharyngeal/nasopharyngeal cyst-03/15/2022 History of tonsillectomy and adenoidectomy [place] mass aprox 2005 History of wisdom tooth extraction Family History Mother Breast cancer Glaucoma Paternal Grandmother Liver cancer Paternal Grandfather Alzheimer disease Other Heart attack Hyperlipidemia Non-Hodgkin lymphoma Stroke Social History Smoking/Tobacco Use Status: Never Smoking risk assessment performed?: Yes Alcohol Intake: current Alcohol Intake frequency: a few times a week Drug use: Never Substance use type: does not use current occupation: Traveling ED RN Sexually active: Yes Do you think of yourself as: straight/heterosexual Current gender identity: female Do you feel safe at home: Yes Do you feel safe in your relationship?: Yes Female Reproductive History Menstrual Duration of menses: 6-7 days control method: none History History 0 Para Hx # Term Pregnancies Multiple births Hx # Pregnancies Ectopic pregnancies AB induced Hx Number of Living Children AB spontaneous Exam Const General: cooperative and healthy appearing Orientation: alert, awake and oriented x3 HENMT Head: normal to inspection Ears: hearing grossly normal bilaterally and external ears normal General nose exam: external nose normal Face and sinus: normal facial exam Mouth: oral mucosae normal Eyes General: appearance normal, both eyes and all related structures Eyelids: eyelids normal EOM: EOM intact bilaterally Neck Neck: normal visual inspection Lymphatic: no lymphadenopathy noted Chest Chest: normal inspection of the chest Resp Effort & Inspection: normal respiratory effort and able to speak in complete sentences Auscultation: clear to auscultation bilaterally Cardio Rate: regular rate Rhythm: regular rhythm Heart Sounds: murmur systolic III/ GI Inspection: normal to inspection Palpation: soft, not firm, no guarding, no hepatosplenomegaly, no masses and tender in the LLQ, in the RLQ and suprapubicly Auscultation: hypoactive bowel sounds Back/Spine/Pelvis Back: no CVA tenderness Skin General skin exam: no rashes or lesions noted Neuro General: patient alert and patient awake Cognition: normal cognition Speech: speech normal Motor: muscle tone normal throughout Sensory Exam: no sensory deficits noted Extrem General: normal to inspection, full ROM and capillary refill normal Psych Appearance: grossly normal Mental Status: mental status grossly normal Speech and Movement: speech and movement normal Affect: normal affect Thought Process: normal Course Vital Signs Vital signs: Vital Signs Temperature 98.8 F 04/16/22 18:57 Pulse 114 H 04/16/22 18:57 Respiratory Rate 14 04/16/22 18:57 Blood Pressure 129/80 04/16/22 18:57 Pulse Oximetry 99 04/16/22 18:57 Temperature 98.8 F 04/16/22 18:57 Temperature Source Temporal Artery Scan 04/16/22 18:57 Pulse 114 H 04/16/22 18:57 Respiratory Rate 14 04/16/22 18:57 Respiratory Effort Non-Labored 04/16/22 19:03 Blood Pressure 129/80 04/16/22 18:57 Blood Pressure Position Sitting 04/16/22 18:57 Pulse Oximetry 99 04/16/22 18:57 Oxygen Delivery Method Room Air 04/16/22 18:57 Oxygen Flow Rate 0 04/16/22 18:57 Pain Level 6 04/16/22 20:00 Lab/Test Results Lab/Test Results: Laboratory Tests Range/Units 04/16/22 04/16/22 04/16/22 19:20 19:20 20:05 WBC (4.4-10.8) 10^3/uL 10.44 RBC (3.93-5.22) 10^6/uL 4.31 Hgb (11.2-15.7) g/dL 13.1 Hct (36.0-46.0) % 39.8 MCV (80-95) fL 92 MCH (27.0-33.0) pg 30.4 MCHC (32.0-36.0) % 32.9 RDW (11.7-14.6) % 11.9 Plt Count (130-400) 10^3/uL 284 MPV (8.0-11.0) fL 10.1 Immature Gran % 0.4 Neutrophils % 83.1 Lymphocytes % 8.7 Monocytes % 6.3 Eosinophils % 1.1 Basophils % 0.4 Nucleated RBC % (0.0-0.3) % 0.0 Absolute Neutrophils (1.2-6.7) 10^3/uL 8.67 H Absolute Lymphocytes (1.2-3.4) 10^3/uL 0.91 L Absolute Monocytes (0.1-0.8) 10^3/uL 0.66 Absolute Eosinophils (0.0-0.7) 10^3/uL 0.12 Absolute Basophils (0.0-0.2) 10^3/uL 0.04 Sodium (136-145) mmol/L 138 Potassium (3.5-5.1) mmol/L 3.4 L Chloride (98-107) mmol/L 101 Carbon Dioxide (21.0-32.0) mmol/L 26.4 Anion Gap (3-11) mmol/L 10.6 BUN (7-18) mg/dL 9 Creatinine (0.55-1.02) mg/dL 0.7 Estimated GFR/1.73 m2 (mL/min/1.73m2) >= 60.00 Glucose (74-106) mg/dL 86 Calcium (8.5-10.1) mg/dL 9.1 Total Bilirubin (0.2-1.0) mg/dL 0.4 AST (15-37) U/L 15 ALT (14-59) U/L 27 Alkaline Phosphatase (46-116) U/L 74 Total Protein (6.4-8.2) g/dL 8.2 Albumin (3.4-5.0) g/dL 4.3 Lipase (73-393) U/L 190 Urine Color (Yellow) Yellow Urine Clarity (Clear) Clear Urine pH (5-8) 6.0 Ur Specific Glover (1.005-1.025) 1.025 Urine Protein (Negative) mg/dL Negative Urine Ketones (Negative) mg/dL 15 H Urine Blood (Negative) Negative Urine Nitrite (Negative) Negative Urine Bilirubin (Negative) Negative Urine Urobilinogen (Up TO 0.2) EU/dL 0.2 Ur Leukocyte Esterase (Negative) Negative Urine Glucose (Negative) mg/dL Negative PAWSS Have you Been Recently Intoxicated or Drunk Within the Last 30 days?: No Have you Ever Experienced Previous Episodes of Alcohol Withdrawal?: No Have you ever Experienced Withdrawal Seizures?: No Have you ever Experienced Delirium Tremens(DT)s?: No Have you ever undergone Alcohol Rehabilitation Treatment (i.e, inpt ot outpatient treatment programs)?: No Have you ever Experienced Blackouts?: No Have you ever Combined Alcohol with other Downers within the last 90 days?: No Have you ever Combined Alcohol with any other Substance of Abuse during the last 90 days?: No Positive Blood Alcohol level on Presentation? [PCS.BAL]: No Evidence of Increased Autonomic Activity (i.e. HR>120, tremor, sweating, agitation, nausea)?: No Result: 0
--- NOTE | 2022-04-16 21:00 | DI.CT_ITS ---
Exam(s) CT ABDOMEN PELVIS W EXAM: CT ABDOMEN PELVIS W CLINICAL HISTORY: lower abd pain, s/p laparoscopy. TECHNIQUE: Imaging Protocol: Axial computed tomography images with coronal and sagittal reformatted images were created and reviewed CONTRAST MATERIAL: Intravenous: Omnipaque 78cc Oral: None COMPARISON: CT CT ABDOMEN PELVIS WO from 12/05/2021 FINDINGS: VISUALIZED LUNG BASES: No nodules nor pleural effusions evident. ABDOMEN: There is no ascites. LIVER: Very subtle hypodensity in the upper aspect of the liver. This may just represent an area of mild fatty infiltration. Another possibility, given that this is subcapsular, would be a possible he mangioma. This area measures 3.5 x 2 cm. GALLBLADDER/BILIARY: No obvious calcified gallstones but the gallbladder appears slightly thickened-e dematous. There is no pericholecystic fluid . The CBD is not dilated. PANCREAS: No evidence of pancreatic mass nor dilatation of the pancreatic duct. SPLEEN: Spleen is not enlarged. No obvious intrasplenic lesions. Splenic and portal veins are paten t. ADRENALS: There are no significant adrenal masses. KIDNEYS:There calculi again evident both kidneys. Largest of these is in the right kidney, measuring approximately 6 x 4 millimeters. No solid renal masses. No hydronephrosis. No hydroureter. The u rinary bladder appears unremarkable and there are no calculi therein.. ABDOMINAL AORTA: Abdominal aorta is not enlarged. LYMPH NODES:There is no retroperitoneal nor paraaortic adenopathy. ABDOMINAL WALL: Small fat only containing umbilical hernia. No bowel obstruction. No inguinal herni as. GI: There is no evidence of bowel obstruction, free air, nor abscess. PELVIS: GI: The appendix is difficult to locate is separate structure but there are not no obvious evidence o f acute appendicitis.No evidence of sigmoid diverticulitis. LYMPH NODES: There is no intrapelvic nor inguinal adenopathy. REPRODUCTIVE: Cysts in both adnexal regions are most probably in the ovaries. Largest on the left si de and measures 2.5 x 2.3 cm. URINARY BLADDER: No calculi nor obvious masses evident OSSEOUS: Small sclerotic density in the left ischial tuberosity again noted, measuring 6 x 5 millimet ers and probably a benign bone island. A similar tiny 3 millimeter finding is seen on the opposite s rigoberto similar location. There are no lytic osseous lesions. Sacroiliac joints appear unremarkable in this patient with colitis pattern. IMPRESSION: 1. There are multiple nonobstructive calculi in both kidneys. No hydronephrosis nor hydroureter on e ither side. Urinary bladder appears unremarkable. 2. There is a 3.5 x 2.0 cm subcapsular hypodensity in the upper aspect of the liver, difficult to kingsley luate on this type of study. Either represents fatty focal change or possibly a subcapsular cavernou s hemangioma. If clinically indicated this could be further studied with hemangioma protocol contras t infused MRI. 3. Gallbladder wall appears slightly thickened but not distended. No obvious radiopaque calculi with in the gallbladder lumen. Recommend follow-up ultrasound. CBD is not dilated. 4. Left adnexal cyst measuring 2.5 x 2.3 cm, probably ovarian. If clinically indicated follow-up ult rasound can be performed. Other findings as above. RADIATION DOSE DELIVERED: 492.78mGy.cm Total DLP DATA REPOSITORY: All CT scans at this facility are submitted to the National Radiology Data Registry (NRDR) Dose Index Registry (DIR) with the [employer] (ACR). RADIATION OPTIMIZATION: All CT scans at this facility use at least one of these dose optimization te chniques: automated exposure control; mA and/or kV adjustment per patient size (includes targeted exa ms where dose is matched to clinical indication); or iterative reconstruction.
[2022-04-16 21:24] LABS: Source Nasal/Nares
[2022-04-16 21:28] VITALS: BP 123/78; PULSE 88; RESP 12; TEMP 37.2; O2SAT 98
[2022-04-16] MEDS: Omnipaque 350 MG/ML 100 ML BTL IJ (21:33)
[2022-04-16 21:59] LABS: COVID-19 PCR Negative (Negative)
--- NOTE | 2022-04-16 22:01 | DI.VRAD_ITS ---
PROCEDURE INFORMATION: Exam: CT Abdomen And Pelvis With Contrast Exam date and time: 04/16/2022 21:33 Age: 36 years old Clinical indication: Other: Lower abd pain, S/P laparoscopy TECHNIQUE: Imaging protocol: Computed tomography of the abdomen and pelvis with contrast. Contrast material: 350; Contrast volume: 76 ml; Contrast route: INTRAVENOUS (IV); COMPARISON: CT ABDOMEN PELVIS WO 12/05/2021 07:52 FINDINGS: Liver: No mass. Gallbladder and bile ducts: No calcified stones. No ductal dilation. Pancreas: No ductal dilation. No masses. Spleen: No splenomegaly or focal lesions. Adrenal glands: No mass. Kidneys and ureters: Bilateral nephrolithiasis again seen. Minor distention of both collecting systems with no obstructive appearing stones. Stomach and bowel: Circumferential wall thickening in the proximal right colon. This is present at least 2 separate locations. There is also likely some mbil-mp-hkuraiod wall thickening of small bowel loops descending into the pelvis. No small bowel or colonic obstruction. Appendix: No evidence of appendicitis. Intraperitoneal space: Small cul-de-sac free fluid within physiologic limits. Vasculature: No abdominal aortic aneurysm. Lymph nodes: No significantly enlarged lymph nodes. Urinary bladder: The urinary bladder is distended. No urinary bladder wall thickening. Reproductive: Cystic structures associated with the left adnexa measuring up to 2 cm favor benign physiologic follicles. Normal CT appearance of the uterus. Bones/joints: No acute fracture. Soft tissues: No suspicious lesions. IMPRESSION: 1. Wall thickening of small bowel and colon as described likely multifocal enteritis and colitis. Pattern less suggestive of malignancy. 2. Mild dilation of the collecting systems, favor reflux from the distended urinary bladder. 3. Cystic structures associated with the left adnexa measuring up to 2 cm favor benign physiologic follicles. Could be worked up with pelvic ultrasound. 4. Additional findings as described. Dictated and Authenticated by: Hyacinth Ramirez MD. Ordering:RAVEN Barker MD
[2022-04-16] MEDS: traMADol 50 MG TAB PO (22:51)
[2022-04-16] MEDS: Ketorolac 30 MG/ML VIAL IVP (22:51)
--- NOTE | 2022-04-16 23:45 | NUR.NOTE ---
Referral faxed to [facility] f/u 1-2 weeks for colitis discuss possible colonoscopy.Nursing Note:
== END 2022-04-17 00:02 | disposition home or self-care (01) ==
PROVIDERS: Emergency Provider Physician Assistant; PCP Nurse Practitioner Family
DX: K52.9 Noninfective gastroenteritis and colitis, unspecified (principal); Z20.822 Contact with and (suspected) exposure to COVID-19
CPT/HCPCS: 80053; 81025; 83690; 87635; 96361; 96374; 96375; 99285; 74177; 81003; 85025; 99284; J0131; J1885; J3490

== ENCOUNTER 2022-12-30 01:10 | Outpatient (CLI) | payer OTHER, SELFPAY ==
--- NOTE | 2022-12-30 15:00 | DI.MRI_ITS ---
Exam(s) MR LOWER JOINT LT WO EXAM: MR LOWER JOINT LT WO CLINICAL HISTORY: left hip pain,m25.552 TECHNIQUE: Multiplanar multisequence MRI of the hip was performed. COMPARISON: CT CT ABDOMEN PELVIS W from 04/16/2022 FINDINGS: MARROW:There is no evidence of fracture, bone contusion, nor avascular necrosis. There are no signif icant osseous lesions.There is no significant osseous excrescence at the femoral head-neck junction t o suggest the presence of cam-type MARLEE. EFFUSION: There is no evidence of joint effusion. BURSAE: There is no evidence of trochanteric bursitis. There is no evidence of iliopsoas bursitis. TENDONS: No prominent signal abnormality nor tears. HIP JOINT SPACE: No obvious chondral defects.There is no hypertrophy of the ligamentum teres nor sign al abnormality at the fovea centralis.No degenerative subarticular cysts. No osteophytes. LABRUM: There is a tiny focus signal abnormality anterosuperior labrum. Doubtful for true tear. The re is no evidence of obvious labral tear nor evidence of paralabral cyst. ISCHIAL TUBEROSITY/HAMSTRING: There is no abnormal intraosseous signal in the ipsilateral ischial tub erosity nor tear of the common hamstrings tendon attachment site at this level. OTHER: There is no abnormal intramuscular signal within the quadratus femoris to suggest the presence of impingement syndrome at this level. IMPRESSION: 1. Minimal findings. No evidence of stress fracture nor avascular necrosis nor joint effusion. 2. No significant degenerative changes. No obvious labral tears. 3. No tendon tears nor bursitis evident. DATA REPOSITORY:
== END 2022-12-30 01:30 ==
PROVIDERS: PCP Nurse Practitioner Family; Visit Provider Physician Assistant
DX: M25.552 Pain in left hip (principal)
CPT/HCPCS: 73721

== ENCOUNTER 2023-04-02 12:55 | Emergency (ER) | payer OTHER, SELFPAY ==
--- NOTE | 2023-04-02 12:45 | DI.RAD_ITS ---
Exam(s) XR RIBS ONLY RT EXAM: XR RIBS ONLY RT CLINICAL HISTORY: rib pain. COMPARISON: No exams were available for comparison FINDINGS: LUNGS: Clear. No pneumothorax is seen. BONES: No displaced rib fracture is seen. No bony destructive lesion is seen. Scoliosis noted. IMPRESSION: No acute abnormality.
[2023-04-02 12:58] VITALS: BP 144/96; PULSE 94; RESP 18; TEMP 36.5; O2SAT 98
--- NOTE | 2023-04-02 12:59 | ED.GENADUL_ITS ---
Discharge Plan Discharge Details Chief Complaint: Chest/Rib Primary Care Provider: MIMI KIM ED Provider: Jose Jaramillo Home Meds and New Rx's Prescriptions: No Action Digestive Advantage Prob Gummy 250 million cell tablet,chewable PO PRN lidocaine [Lidoderm] 5 % adhesive patch,medicated 1 patch topical DAILY Qty: 30 0RF Rx Instructions: leave on most painful area for up to 12 hrs metoclopramide HCl 10 mg tablet 10 mg PO Q6H PRN simethicone 80 mg tablet,chewable 80 mg PO BID-QID PRN famotidine 20 mg tablet 20 mg PO ONCE PRN ibuprofen 800 mg tablet 800 mg PO TID PRN diphenhydramine HCl [Benadryl] 25 mg Capsule 25 mg PO TID PRN Medical Decision Making X-rays of the ribs do not demonstrate any fractures. Lung parenchyma appears normal. Incidental finding of scoliosis that the patient already knows about. Treatment plan reviewed with patient. HPI General Date/Time Provider Initiated Documentation: 04/02/23 12:58 . HPI Narrative: Healthy 37-year-old present to the emergency department for evaluation of right-sided rib pain. She was at the chiropractor last Tuesday and felt some sudden pain during one of the maneuvers. The pain was so tight that he jumped. Since then she has been having intermittent right rib pain. The pain is respirophasic. The pain is also worse to the touch. Patient states that she feels some mild swelling overlying the right rib cage. No cough. No fevers no chills. No nausea no vomiting. No abdominal pain. Related Data Home Medications Medication Instructions Recorded Confirmed metoclopramide HCl 10 mg tablet 10 mg PO Q6H PRN 12/08/21 04/02/23 simethicone 80 mg chewable tablet 80 mg PO BID-QID PRN 12/08/21 04/02/23 diphenhydramine HCl 25 mg capsule 25 mg PO TID PRN 03/15/22 04/02/23 (Benadryl) Bacillus coagulans 250 million cell PO PRN 11/08/22 12/13/22 cell chewable tablet (Digestive Advantage Probiotic Gummy) famotidine 20 mg tablet 20 mg PO ONCE PRN 11/08/22 04/02/23 ibuprofen 800 mg tablet 800 mg PO TID PRN 11/08/22 04/02/23 lidocaine 5 % topical patch 1 patch topical DAILY #30 ea 12/13/22 04/02/23 (Lidoderm) Previous Rx's Medication Instructions Recorded lidocaine 5 % topical patch 1 patch topical DAILY #30 ea 12/13/22 (Lidoderm) Allergies Allergy/AdvReac Type Severity Reaction Status Date / Time Sulfa (Sulfonamide AdvReac Severe N/V Verified 04/02/23 13:02 Antibiotics) nitrofurantoin AdvReac Porjectile Verified 04/02/23 13:02 [From Macrobid] vomiting General OSCRA: 3 Review of Systems Narrative: 10 point review of system is negative unless otherwise specified in the HPI PFSH All Active Problems (Updated 12/13/22 @ 14:35 by MARTY Prieto) Left hip pain (Acute) H/O ovarian cystectomy (Acute) 03/31/22. In [place]. Bilateral ovarian cystectomy for endometriomas. Endometriosis determined by laparoscopy (Acute) 03/30/22. Bilateral endometriomas. s/p ovarian cystectomies in [place]. Pharyngeal cyst (Acute) Infertility, female (Acute 01/25/17) pt sees Dr Gelacio FIERRO, and is s/p normal HSG, and 2 unsuccessful IUI procedures. History of endometriosis (Acute 01/25/17) Thrombosed external hemorrhoid (Acute) Constipation by delayed colonic transit (Acute) Encounter for screening for other viral diseases (Acute) Dysmenorrhea (Acute) Renal calculus, bilateral (Acute) Ovarian mass, left (Acute) Nasopharyngeal mass (Acute) Medical History Autoimmune disease Behcet's disease vulvar lesions s/p excision with provider in [place]. Endometriosis Hemorrhoid Infertility Left flank pain Pharyngeal swelling Recurrent kidney stones Scoliosis Swelling of tonsil Surgical History History of biopsy labial History of throat surgery Marsupialization of right oropharyngeal/nasopharyngeal cyst-03/15/2022 History of tonsillectomy and adenoidectomy [place] mass aprox 2005 History of wisdom tooth extraction Family History Mother Breast cancer Glaucoma Paternal Grandmother Liver cancer Paternal Grandfather Alzheimer disease Other Heart attack Hyperlipidemia Non-Hodgkin lymphoma Stroke Social History Smoking/Tobacco Use Status: Never Smoking risk assessment performed?: Yes Alcohol Intake: current Alcohol Intake frequency: a few times a week Drug use: Never Substance use type: does not use current occupation: Traveling ED RN Sexually active: Yes Do you think of yourself as: straight/heterosexual Current gender identity: female Do you feel safe at home: Yes Do you feel safe in your relationship?: Yes Female Reproductive History Menstrual Duration of menses: 6-7 days control method: none History History 0 Para Hx # Term Pregnancies Multiple births Hx # Pregnancies Ectopic pregnancies AB induced Hx Number of Living Children AB spontaneous Exam Narrative Exam Narrative: General: A,A Ox3, Calm, no apparent distress, well developed, pleasant and cooperative Head Size/Shape: normocephalic, atraumatic Eyes Pupils: PERRLA Extraocular Mobility: intact and symmetrical Conjunctiva: non-injected, anicteric, no discharge Ears, Nose, Throat Nares: patent bilaterally Oral Cavity: moist Neck: supple Respiratory Respiratory Effort: no dyspnea Auscultation: clear to auscultation bilaterally, normal breath sounds, no wheezing, no rales/crackles Point tenderness overlying the right lower rib cage anteriorly. Cardiovascular Normal cap refill Abdomen Inspection and Palpation: soft, non-tender, non-distended, no hepatosplenomegaly Musculoskeletal System Joints, Bones, and Muscles: no deformities Extremities: warm and well-perfused, no cyanosis, capillary refill <2 seconds Skin Skin Inspection: no rash, no lesions, no bruising Neurological Motor: normal tone, normal strength, moving all extremities equally Psychiatric: good insight, good judgement, normal mood and affect
[2023-04-02] MEDS: Ketorolac 15 MG/ML VIAL IM (13:10)
--- NOTE | 2023-04-02 14:02 | DI.VRAD_ITS ---
PROCEDURE INFORMATION: Exam: XR Right Ribs Exam date and time: 04/02/2023 1:49 PM Age: 37 years old Clinical indication: Other: Rib pain TECHNIQUE: Imaging protocol: Radiologic exam of the right ribs. Views: 2 views. COMPARISON: CT ABDOMEN PELVIS W 04/16/2022 9:33 PM FINDINGS: Bones/joints: No displaced rib fracture. Soft tissues: Unremarkable. IMPRESSION: No displaced rib fracture. Dictated and Authenticated by: Nisreen Diaz MD. Ordering:ALBERT Garcia MD
== END 2023-04-02 14:08 | disposition home or self-care (01) ==
PROVIDERS: Emergency Provider Emergency Medicine; PCP Nurse Practitioner Family
DX: R07.81 Pleurodynia (principal)
CPT/HCPCS: 96372; 99284; 71100; J1885

== ENCOUNTER 2024-10-05 11:07 | Outpatient (REF) | payer OTHER, SELFPAY ==
--- NOTE | 2024-10-05 10:20 | PAPFT_PTH ---
PATIENT: Aruna Gray LOC: [facility] U#:[id number] AGE/SX: 38/F ROOM: RE10/05/[address]: Edwige Acevedo : 1985 BED: DIS: 10/05/2024 SPEC #: [id number] RECD: 10/05/24 13:14 STATUS: SONAL RECady #: [id number] JOHNNIE: 10/05/24 10:[address]: Edwige Acevedo [facility] Cytology RECD BY: Anitha Valenzuela ENTERED: 10/05/24 13:14 SP TYPE: PAPFT LISSETT DR: MIMI KIM NP Tissues: 1 - CX/ENDOCX FOR PAP SMEARS Procedures: PAP THIN PREP/UVM Screening HPV DNA PROBE Comments: [id number] (HPV 16 & 18/45)
== END 2024-10-05 11:08 | disposition home or self-care (01) ==
LOC: LBN 11:07
PROVIDERS: PCP Nurse Practitioner Family; Visit Provider Obstetrics & Gynecology Gynecology
DX: Z11.51 Encounter for screening for human papillomavirus (HPV) (principal); Z01.419 Encounter for gynecological examination (general) (routine) without abnormal findings
CPT/HCPCS: 88142; 87624

== ENCOUNTER 2024-10-30 01:03 | Outpatient (CLI) | payer OTHER, SELFPAY ==
--- NOTE | 2024-10-30 08:06 | DI.MAMMO_ITS ---
Exam(s) MAMMO SCREENING EXAM: MAMMO SCREENING CLINICAL HISTORY: screening,z12.39 TECHNIQUE: Bilateral full field digital CC and MLO mammographic images were obtained with 3D tomosyn thesis and utilizing computer aided detection (CAD). COMPARISON: Available for comparison. FINDINGS: Masses/Architectural Distortion: No suspicious masses or architectural distortion is seen. Microcalcifications: No suspicious pleomorphic-type are seen. Skin Thickening/Nipple Retraction: None. IMPRESSION: 1. No significant interval change with no specific features of malignancy noted. 2. Unless there is more urgent need, screening mammography is recommended, as per [employer] guidelines. BI-RADS Category 1 - Negative Breast Density - Category D - Extremely dense Breast density category C or D implies that the patient has dense breast tissue. Dense breast tissue is very common and is not abnormal but dense breast tissue can make it harder to find cancer on a ma mmogram. Also, dense breast tissue may increase their breast cancer risk. This information about the result of the mammogram report was provided to the patient to raise their awareness. Use this report when you speak with the patient about their risks for breast cancer, which includes their family hist ory. At that time, you may recommend for more screening tests (Ultrasound or MRI) as they might be us eful based on their risk. A negative radiographic report should not delay biopsy if a dominant or clinically suspicious mass is present. Up to ten percent of cancers are not identified on mammography. A negative report may reinforce clinical impression. Adenosis and dense breasts may obscure an underlying neoplasm. False positive reports average 6 to 10%. Patient will receive a letter notifying them of these results.
== END 2024-10-30 01:23 ==
LOC: DI 01:03
PROVIDERS: PCP Nurse Practitioner Family; Visit Provider Obstetrics & Gynecology Gynecology
DX: Z12.31 Encounter for screening mammogram for malignant neoplasm of breast (principal); R92.343 Mammographic extreme density, bilateral breasts
CPT/HCPCS: 77063; 77067